=== PATIENT | female | born 1965 | race Caucasian/White ===

== ENCOUNTER 2024-06-25 10:12 | Emergency (ER) | payer BC, SELFPAY ==
--- NOTE | 2024-06-25 10:16 | XR_ITS ---
Examination: CTA chest with intravenous contrast 2-D reconstructions 3-D reconstructions, vascular Date and time of exam: June 25, 2024 1150 hours INDICATIONS: Hypertension chest pain shortness of breath tachycardia today, clinical diagnosis pulmonary embolus CTDI: vol (mGy) 19.8 DLP: (mGycm) 427 Technique: Multiple axial sections of the thorax have been obtained. 3 mm slice thickness, from below the hemidiaphragms to above the apices of the lungs. Mediastinal and lung density settings have been obtained. 2-D sagittal and coronal reconstructions. 3-D angiographic renderings, 3-D volume renderings, 3D post processing, vascular maximum intensity projections obtained. Contrast administered is 100 cc Isovue-370. Low dose protocols were performed. One or more of the following dose reduction techniques were used; automated exposure control, adjustment of the mA and/or KV according to patient size, use of iterative reconstruction technique. Findings: No thoracic aortic aneurysm dilatation or dissection Pulmonary artery segments are not enlarged No pulmonary artery emboli No paratracheal tracheobronchial or bronchopulmonary adenopathy No pneumonia or pulmonary edema or pleural disease Small pericardial effusion, anterior to the ventricles measuring 6 mm Retrocardiac gastric hernia No focal liver or splenic lesion Absent gallbladder No pancreatic or adrenal mass Kidneys partially visualized no hydronephrosis IMPRESSION: Negative for pulmonary artery emboli No pneumonia, pulmonary edema or pleural disease
--- NOTE | 2024-06-25 10:16 | EKG_ITS ---
[facility] Test Date: 2024-06-25 Pat Name: BEATA BUCKNER Department: Room: - Gender: Female Rate Inserter: : 1965 Requested By: Seamus Lara Order Number: [id number] Reading MD: Seamus Lara Measurements Intervals [place] Rate: 91 P: 1 TN: 141 QRS: 1 QRSD: 93 T: 0 QT: 364 QTc: 448 Interpretive Statements SINUS RHYTHM LOW QRS VOLTAGE IN PRECORDIAL LEADS [QRS DEFLECTION < 1.0 mV IN CHEST LEADS] Compared to ECG 05/29/2024 14:12:05 Low QRS voltage now present Ventricular premature complex(es) no longer present /store/S0/[id number]/ecg/[id number].pdf
--- NOTE | 2024-06-25 10:19 | ECHO_ITS ---
Transthoracic Echo Report Ht (in): 65 Wt (lb): 220 Exam Location: ER Status: Preadmit Folder Inspector: Blanche Fonseca Indications: Procedure Performed: BP: 160 / 90 HR: 100 Rhythm: Tachycardia Technical Quality: Fair MEASUREMENTS (Male / Female) Normal Values 2D ECHO LV Diastolic Diameter PLAX 4.6 cm 4.2 - 5.9 / 3.9 - 5.3 cm LV Systolic Diameter PLAX 3.2 cm IVS Diastolic Thickness 0.9 cm 0.6 - 1.0 / 0.6 - 0.9 cm LVPW Diastolic Thickness 0.9 cm 0.6 - 1.0 / 0.6 - 0.9 cm LV Relative Wall Thickness 0.4 LVOT Diameter 1.9 cm LA Volume Index 21.3 cm?/m? 16 - 28 cm?/m? Ascending Aorta Diameter 3.1 cm M-MODE Aortic Root Diameter MM 2.6 cm LA Systolic Diameter MM 4.0 cm LA Ao Ratio MM 1.5 AV Cusp Separation MM 2.1 cm DOPPLER AV Peak Velocity 159.0 cm/s AV Peak Gradient 10.1 mmHg AV Mean Gradient 5.0 mmHg AV Velocity Time Integral 28.9 cm LVOT Peak Velocity 91.4 cm/s LVOT Peak Gradient 3.3 mmHg LVOT Velocity Time Integral 19.8 cm LVOT Cardiac Index 2570.8 cm?/min?m? AV Area Cont Eq vti 1.9 cm? AV Area Cont Eq pk 1.6 cm? MV Peak Velocity 109.0 cm/s MV Peak Gradient 4.8 mmHg MV Mean Velocity 70.3 cm/s MV Mean Gradient 2.0 mmHg MV Area PHT 6.9 cm? MR Peak Velocity 400.0 cm/s MR Peak Gradient 64.0 mmHg Mitral E Point Velocity 60.0 cm/s Mitral A Point Velocity 113.0 cm/s Mitral E to A Ratio 0.5 LV E' Lateral Velocity 8.8 cm/s Mitral E to LV E' Lateral Ratio 6.8 LV E' Septal Velocity 11.3 cm/s Mitral E to LV E' Septal Ratio 5.3 TR Peak Velocity 212.7 cm/s TR Peak Gradient 18.1 mmHg FINDINGS Left Ventricle Normal left ventricular size, wall thickness, systolic function with no obvious regional wall motion abnormalities. The ejection fraction is visually estimated at 55-60%. Right Ventricle The right ventricle is normal in size and systolic function. The estimated right ventricular systoli c pressure, 30mmHg.RAP 5. Left Atrium The left atrium is normal by two-dimensional, color flow and Doppler imaging with no structural abnormalities, no thrombus formation present. Right Atrium The right atrium is normal by two-dimensional imaging, color flow and Doppler imaging with no struct ural abnormalities, no thrombus formation present. Atrial Septum The interatrial septum appears normal with no evidence of a shunt. Aorta The aorta is normal by two-dimensional, color flow and Doppler interrogation. Mitral Valve The mitral valve is normal by two-dimensional, color flow and Doppler interrogation. There is mild m itral valve regurgitation. Aortic Valve The aortic valve is trileaflet and normal by two-dimensional, color flow and Doppler interrogation. There is trace aortic valve regurgitation. Tricuspid Valve The tricuspid valve is normal by two-dimensional, color flow and Doppler interrogation. There is mil d tricuspid valve regurgitation. Pulmonic Valve There is no significant pulmonic valve regurgitation. Vessels The pulmonary artery appears normal. The inferior vena cava pulmonary and hepatic veins appear freddie l. Pericardium The pericardium is normal by two-dimensional imaging. There is no significant pericardial effusion. CONCLUSIONS Indication: Persistent tachycardia Normal LV size and function. Grade I diastolic dysfunction. Estimated EF 55-60% Normal RV size and function Mild MR, TR. Trace AI. Brando Arreguin (Electronically Signed) Final Date: 25 June 2024 15:51
--- NOTE | 2024-06-25 10:24 | CHAP ---
Patient expressed gratitude for visit and prayer.
--- NOTE | 2024-06-25 10:28 | PC.NURSE ---
Pt coming in from the ED lobby with c/o of tachycardia and hypertension; pt coming from clinic and has hx of breast cancer. Pt currently on chemotherapy but no radiation. Pt connected to monitors at this time.
[2024-06-25 10:29] VITALS: BP 160/90; PULSE 97; RESP 16; TEMP 36.9; O2SAT 98; BMI 17.4
--- NOTE | 2024-06-25 10:51 | PD.EDADULT ---
ED General RME/HPI General Chief complaint: General Adult/Misc Complain Stated complaint: sent by clinic for htn/tachycardia Time Seen by Provider: 06/25/24 10:15 Arrival date/time: 06/25/24 10:12 RME / HPI RME / HPI narrative: 58 year old female with history of invasive ductal carcinoma of the left breast, currently on AC chemotherapy, diabetes, GERD presents to the ED sent by oncologist Dr. Macias for further evaluation of tachycardia today. Patient evidently was at the cancer treatment center today and noted to be tachycardic. Patient states since starting the AC chemotherpay she has heart flutters 1 week post treatment and has had two echo's performed; November and April of this year. States she followed up with etl bi developer Dr. Gamboa 06/19/2024 and told there were anomalies in the echo and is pending a stress test to be scheduled. Denies fevers, chills, chest pain, cough, shortness of breath, abdominal pain, n/v/d, or urinary symptoms. Related Data Home Medications ?Medication ?Instructions ?Recorded ?Confirmed No Known Home Medications 05/17/23 05/18/23 Allergies Allergy/AdvReac Type Severity Reaction Status Date / Time latex Allergy Verified 06/25/24 10:13 WALNUTS Allergy Unknown Uncoded 06/25/24 10:13 Review of Systems Review of Systems Narrative Review of Systems: Gen: No fever, no chills, no weight loss EYES: No discharge, no visual changes, no pain HEENT: No ear pain, no congestion, no sore throat PULM: no shortness of breath, no cough, no congestion CV: No chest pain, no dyspnea on exertion, + palpitations, no chest tightness GI: No nausea, no vomiting, no diarrhea, no pain, no constipation : No frequency, no urgency,? no dysuria Musc/skel: No joint pain, no back pain Skin: No rash, no ecchymosis, no lesions Psyc: No hallucinations, no depression Heme/Lymph: No easy bleeding or bruising tendencies Neuro: No weakness, no headache Past Medical History Past Medical History NEUROLOGIC: Positive Neurological Disorders and Migraine GASTROINTESTINAL: Positive Gastrointestinal Disorders, Gall Bladder Disease and Obesity REPRODUCTIVE: Positive Breast Cancer and Previous Pregnancies MUSCULOSKELETAL: Positive Musculoskeletal Disorders and Arthritis OTHER HISTORY: Positive Chicken Pox and Breast Cancer Family History FAMILY HISTORY: Positive Family Cardiac Disorders (HTN for mom's side, HTN & DM from dad's side) Surgical History SURGICAL: Positive Abdominal Surgery (lap band 2006), Arthroscopy (right knee) and Section (x1) Social History SMOKING STATUS: Never smoker ED Exam Narrative Physical exam: GENERAL APPEARANCE: AxOx4, no obvious distress, nontoxic appearing HEENT: NC, AT. MMM. EOMI, clear conjunctiva, oropharynx clear. NECK: Supple without lymphadenopathy. No stiffness or restricted ROM. HEART: On telemetry during rest, patients heart rate is 90's and while talking is 100's-110's, normal S1/S1, no m/r/g LUNGS: CTAB, moving air well. No crackles or wheezes are heard. ABDOMEN: Soft, nontender, nondistended with good bowel sounds heard. BACK: No midline C/T/L spine pain or deformity, No CVAT, no obvious deformity. EXTREMITIES: Without cyanosis, clubbing or edema. MUSCULOSKELETAL: FROM of all major joints, no chest tenderness NEUROLOGICAL: Grossly nonfocal. Alert and oriented, moving all 4 extremities. CN not formally tested but appear grossly intact. Skin: Warm and dry without any rash. Course Quality Measures none Orders Category Date Time Status CT Screening NOW Care 06/25/24 10:16 Active EKG (ED ONLY) *Do not use* NOW Care 06/25/24 10:16 Completed CA echo doppler complete Stat Exams 06/25/24 10:[address] angio chest Stat Exams 06/25/24 10:16 Completed EKG (ED Only) Stat Exams 06/25/24 10:16 Draft Magnesium Stat Lab 06/25/24 10:48 Completed Vital Signs Vital signs: Vital Signs Temperature 98.4 F 06/25/24 10:29 Pulse Rate 97 06/25/24 10:29 Respiratory Rate 16 06/25/24 10:29 Blood Pressure 160/90 H 06/25/24 10:29 Pulse Oximetry (%) 98 06/25/24 10:29 Oxygen Delivery Method Room Air 06/25/24 10:29 Pulse ox is 98% on room air which is adequate. Procedures -ED EKG Interpretation #1: Date of EK06/25/24 Time of EK:11 Rate: 91 Interpretation: Interpreted by me Additional EKG comment: sinus rhythm, rate 91, low voltage, no acute ST-T wave changes MDM Patient data External records reviewed:: [facility] previous records (I reviewed Dr. Macias's oncology note from 06/24/2024) Clinical information provided by:: patient Social determinants that could affect healthcare access:: none Patient has the following chronic illnesses:: invasive ductal carcinoma of the left breast, currently on AC chemotherapy, diabetes, GERD How is presenting disease/condition affected by chronic disease/condition?: exacerbated by Evaluation data The following diagnostics were reviewed and interpreted by me:: lab results, radiology exam(s) and EKG tracing(s) Lab and/or radiology exams considered but not ordered:: None Interpretation Summary: Ordering Physician: Seamus Lara MD Date of Service: 06/25/24 Procedure(s): CT angio chest Accession Number(s): [id number] cc: Seamus Lara MD; Nikhil Felton MD; Maged Hallman MD~ Examination: CTA chest with intravenous contrast 2-D reconstructions 3-D reconstructions, vascular Date and time of exam: June 25, 2024 1150 hours INDICATIONS: Hypertension chest pain shortness of breath tachycardia today, clinical diagnosis pulmonary embolus CTDI: vol (mGy) 19.8 DLP: (mGycm) 427 Technique: Multiple axial sections of the thorax have been obtained. 3 mm slice thickness, from below the hemidiaphragms to above the apices of the lungs. Mediastinal and lung density settings have been obtained. 2-D sagittal and coronal reconstructions. 3-D angiographic renderings, 3-D volume renderings, 3D post processing, vascular maximum intensity projections obtained. Contrast administered is 100 cc Isovue-370. Low dose protocols were performed. One or more of the following dose reduction techniques were used; automated exposure control, adjustment of the mA and/or KV according to patient size, use of iterative reconstruction technique. Findings: No thoracic aortic aneurysm dilatation or dissection Pulmonary artery segments are not enlarged No pulmonary artery emboli No paratracheal tracheobronchial or bronchopulmonary adenopathy No pneumonia or pulmonary edema or pleural disease Small pericardial effusion, anterior to the ventricles measuring 6 mm Retrocardiac gastric hernia No focal liver or splenic lesion Absent gallbladder No pancreatic or adrenal mass Kidneys partially visualized no hydronephrosis IMPRESSION: Negative for pulmonary artery emboli No pneumonia, pulmonary edema or pleural disease Dictated By:Nikhil Felton MD Signed By:<Electronically signed by Nikhil Felton MD in OV>06/25/24 1320 Procedure(s): CA echo doppler complete Accession Number(s): [id number] cc: Brando Arreguin MD; Seamus Lara MD~ Transthoracic Echo Report Ht (in): 65 Wt (lb): 220 Exam Location: ER Status: Preadmit Pet Technologist: Blanche Fonseca Indications: Procedure Performed: BP: 160 / 90 HR: 100 Rhythm: Tachycardia Technical Quality: Fair MEASUREMENTS (Male / Female) Normal Values 2D ECHO LV Diastolic Diameter PLAX 4.6 cm 4.2 - 5.9 / 3.9 - 5.3 cm LV Systolic Diameter PLAX 3.2 cm IVS Diastolic Thickness 0.9 cm 0.6 - 1.0 / 0.6 - 0.9 cm LVPW Diastolic Thickness 0.9 cm 0.6 - 1.0 / 0.6 - 0.9 cm LV Relative Wall Thickness 0.4 LVOT Diameter 1.9 cm LA Volume Index 21.3 cm?/m? 16 - 28 cm?/m? Ascending Aorta Diameter 3.1 cm M-MODE Aortic Root Diameter MM 2.6 cm LA Systolic Diameter MM 4.0 cm LA Ao Ratio MM 1.5 AV Cusp Separation MM 2.1 cm DOPPLER AV Peak Velocity 159.0 cm/s AV Peak Gradient 10.1 mmHg AV Mean Gradient 5.0 mmHg AV Velocity Time Integral 28.9 cm LVOT Peak Velocity 91.4 cm/s LVOT Peak Gradient 3.3 mmHg LVOT Velocity Time Integral 19.8 cm LVOT Cardiac Index 2570.8 cm?/min?m? AV Area Cont Eq vti 1.9 cm? AV Area Cont Eq pk 1.6 cm? MV Peak Velocity 109.0 cm/s MV Peak Gradient 4.8 mmHg MV Mean Velocity 70.3 cm/s MV Mean Gradient 2.0 mmHg MV Area PHT 6.9 cm? MR Peak Velocity 400.0 cm/s MR Peak Gradient 64.0 mmHg Mitral E Point Velocity 60.0 cm/s Mitral A Point Velocity 113.0 cm/s Mitral E to A Ratio 0.5 LV E' Lateral Velocity 8.8 cm/s Mitral E to LV E' Lateral Ratio 6.8 LV E' Septal Velocity 11.3 cm/s Mitral E to LV E' Septal Ratio 5.3 TR Peak Velocity 212.7 cm/s TR Peak Gradient 18.1 mmHg FINDINGS Left Ventricle Normal left ventricular size, wall thickness, systolic function with no obvious regional wall motion abnormalities. The ejection fraction is visually estimated at 55-60%. Right Ventricle The right ventricle is normal in size and systolic function. The estimated right ventricular systolic pressure, 30mmHg.RAP 5. Left Atrium The left atrium is normal by two-dimensional, color flow and Doppler imaging with no structural abnormalities, no thrombus formation present. Right Atrium The right atrium is normal by two-dimensional imaging, color flow and Doppler imaging with no structural abnormalities, no thrombus formation present. Atrial Septum The interatrial septum appears normal with no evidence of a shunt. Aorta The aorta is normal by two-dimensional, color flow and Doppler interrogation. Mitral Valve The mitral valve is normal by two-dimensional, color flow and Doppler interrogation. There is mild mitral valve regurgitation. Aortic Valve The aortic valve is trileaflet and normal by two-dimensional, color flow and Doppler interrogation. There is trace aortic valve regurgitation. Tricuspid Valve The tricuspid valve is normal by two-dimensional, color flow and Doppler interrogation. There is mild tricuspid valve regurgitation. Pulmonic Valve There is no significant pulmonic valve regurgitation. Vessels The pulmonary artery appears normal. The inferior vena cava pulmonary and hepatic veins appear normal. Pericardium The pericardium is normal by two-dimensional imaging. There is no significant pericardial effusion. CONCLUSIONS Indication: Persistent tachycardia Normal LV size and function. Grade I diastolic dysfunction. Estimated EF 55-60% Normal RV size and function Mild MR, TR. Trace AI. Brando Anumandla (Electronically Signed) Final Date: 25 June 2024 15:51 Dictated By: Brando Arreguin MD Medications Medications considered but not ordered:: None Medication administrations:: see above if any Consultations Consultation(s) initiated? (list below): Yes Consultation #1 (Physician, Specialty, Details): I spoke with Dr. Macias and discussed case. Diagnosis Differential Diagnosis ED Complaint MDM: Hypomagnesemia, hypokalemia, Most likely diagnosis given after review of the tests above:: Palpitations Admission Indicated Admission indicated?: not indicated Explain why admission is indicated or not indicated:: Patient has no emergent abnormalities on his studies and can be managed on an outpatient basis. Admission Request Was there a request for admission?: No Disposition Plan Disposition Plan: Discharge Discharge Attestation Discharge Attestation: The patient and all family members were given an opportunity to ask questions and understood the discharge instructions. Discharge instructions specifically effects, indications for sooner follow up or return to the emergency department, and the expected course of current diagnosis. Patient condition: Stable Medical Decision Making Differential Diagnosis Differential Diagnosis: Hypomagnesemia, hypokalemia, Lab Data 06/25/24 10:48 06/25/24 10:48 Labs: Lab Results 06/25/24 Range/Units 10:48 WBC Cancelled RBC Cancelled Hgb Cancelled Hct Cancelled MCV Cancelled MCH Cancelled MCHC Cancelled RDW Std Deviation Cancelled Plt Count Cancelled Neut % (Auto) Cancelled Lymph % (Auto) Cancelled Christian % (Auto) Cancelled Eos % (Auto) Cancelled Baso % (Auto) Cancelled Neut # (Auto) Cancelled Lymph # (Auto) Cancelled Christian # (Auto) Cancelled Eos # (Auto) Cancelled Baso # (Auto) Cancelled Immature Gran # (Auto) Cancelled Absolute Nucleated RBC Cancelled Immature Gran % Cancelled Nucleated RBC % Cancelled Sodium Cancelled Potassium Cancelled Chloride Cancelled Carbon Dioxide Cancelled Anion Gap Cancelled BUN Cancelled Creatinine Cancelled Estim Creat Clear Calc Cancelled eGFR Cancelled BUN/Creatinine Ratio Cancelled Glucose Cancelled Calculated Osmolality Cancelled Calcium Cancelled Corrected Calcium Cancelled Magnesium 1.7 (1.6-2.6) mg/dL Total Bilirubin Cancelled AST Cancelled ALT Cancelled Alkaline Phosphatase Cancelled Total Protein Cancelled Albumin Cancelled Globulin Cancelled Albumin/Globulin Ratio Cancelled Discharge Plan Plan Patient Disposition: HOME (Self Care) Prescriptions/Referrals Prescriptions/Med Rec: No Action No Known Home Medications Referrals: Maged Hallman MD [Primary Care Provider] - In 1 week Problem List Clinical Impression: Palpitation Patient/Caregiver Discharge Instructions Education Materials: ED Palpitations Additional Instructions: Follow-up with Dr. Macias tomorrow for next steps. You can return to the emergency department sooner if symptoms worsen or for any new or concerning issues. Print Language: Persian Stand Alone Forms: [facility] Award Info., Patient Portal Info Letter
[2024-06-25 11:18] LABS: Magnesium 1.7 mg/dL (1.6-2.6)
[2024-06-25 13:10] VITALS: BP 137/97; PULSE 101; RESP 18; O2SAT 100
[2024-06-25 14:23] VITALS: BP 130/102; PULSE 102; RESP 18; TEMP 36.9; O2SAT 99
[2024-06-25 16:22] VITALS: BP 141/109; PULSE 103; RESP 20; TEMP 37.1; O2SAT 99
== END 2024-06-25 16:30 | disposition home or self-care (01) ==
PROVIDERS: Emergency Provider Emergency Medicine; PCP Internal Medicine
DX: I08.3 Combined rheumatic disorders of mitral, aortic and tricuspid valves (principal); I10 Essential (primary) hypertension
CPT/HCPCS: 36415; 71275; 80053; 83735; 85025; 93005; 93306; 99285; A4649; Q9967

== ENCOUNTER 2024-06-27 07:53 | Outpatient (RCR) | payer BC, SELFPAY ==
[2024-06-04 08:53] LABS: Basophils # (Auto) 0.1 Thou/mm3 (0.0-0.2); Basophils % (Auto) 2 % (0-2.5); Eosinophils % (Auto) 1 % (0-10); Hematocrit 33.3 % (36.0-46.0); Hemoglobin 11.6 g/dL (12.0-16.0); Immature Granulocytes % (Auto) 10 % (0-0); Immature Granulocytes Auto 0.54 Thou/mm3 (0.00-0.00); Lymphocytes # (Auto) 1.1 Thou/mm3 (1.0-4.8); Lymphocytes % (Auto) 19 % (10-50); Mean Corpuscular HGB Conc 34.8 g/dl (31.0-37.0); Mean Corpuscular Volume 101 fL (80-100); Monocytes # (Auto) 1.2 Thou/mm3 (0.0-0.8); Monocytes % (Auto) 22 % (0-12); Neutrophils # (Auto) 2.7 Thou/mm3 (1.8-7.7); Neutrophils % (Auto) 48 % (37-80); Nucleated Red Blood Cell % 0 /100 WBC (0); Platelet Count 214 Thou/mm3 (140-440); RDW Standard Deviation 45.4 fL (36.4-46.3); Red Blood Count 3.31 Miln/mm3 (4.00-5.20); White Blood Count 5.7 Thou/mm3 (3.6-11.0)
[2024-06-04 09:15] LABS: Alanine Aminotransferase 23 U/L (10-49); Albumin, Serum 4.6 gm/dL (3.5-5.0); Albumin/Globulin Ratio 1.9 (1.2-2.2); Alkaline Phosphatase 103 U/L (46-116); Anion Gap 8 (7-16); Aspartate Amino Transferase 25 U/L (0-34); BUN/Creatinine Ratio 17 Ratio (12-20); Bilirubin,Total 0.4 mg/dL (0.3-1.2); Blood Urea Nitrogen 12 mg/dL (9-23); Calcium 9.3 mg/dL (8.3-10.6); Calcium (Corrected) 9.3 mg/dL (8.5-10.1); Carbon Dioxide 24.2 mMol/L (20.0-31.0); Chloride 105 mMol/L (98-107); Creatinine (Component) 0.7 mg/dL (0.6-1.3); Globulin 2.4 gm/dL (2.3-3.5); Glucose 151 mg/dL (74-106); Magnesium 1.7 mg/dL (1.6-2.6); Osmolality,Calculated 276 (275-295); Sodium 137 mMol/L (136-145); eGFR > 60 See Note
--- NOTE | 2024-06-24 22:34 | CTCFLWUP_ITS ---
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 S/p ultrasound-guided left breast biopsy (11/14/2023) PET/CT scan (12/29/2023) negative for metastatic disease. Currently on neoadjuvant chemotherapy with pembrolizumab, paclitaxel and carboplatin followed by 4 cy cles of AC chemotherapy. Neoadjuvant chemotherapy started on 01/30/2024. REASON FOR TODAY?S VISIT: This is office follow-up visit. Ms. Buckner is here at [facility]. Currently she is undergoing neoadjuvant chemotherapy with pembrolizumab Taxol and carboplatinum. She is on neoadjuvant chemotherapy. She is doing well and have no complaints. HISTORY OF PRESENT ILLNESS: Beata Buckner is a 58-year-old ENG speaking female with history of type 2 diabetes, gastroesophageal reflux disease has the following oncology history. 10/07/2015: Bilateral screening mammograms? 09/12/2023: Bilateral screening mammograms 10/11/2023: Left breast ultrasound? 11/14/2023: Ultrasound-guided biopsy of the left breast mass 12/15/2023: [facility] hereditary cancer test?BRCA 1and2 negative 12/22/2023: Echocardiogram showed an LVEF of 60% 12/29/2023: PET/CT scan? 01/30/2024: Ms. Buckner is started on neoadjuvant chemotherapy with pembrolizumab, Taxol and carboplatin. PAST MEDICAL HISTORY: Ductal invasive carcinoma left breast 11/14/23 Diabetes GERD PAST SURGICAL HISTORY: Right knee surgery - 2022 Cholecystectomy - 2009 Lap band for weight loss - 2005 - 1991 MEDICATIONS: 1. famotidine - 20 mg 1 tab Daily 2. Lomotil - 2.5-0.025 mg 1 tab Every 6 Months 3. multivitamin - 1 tab Daily 4. Ozempic - 0.25 mg or 0.5 mg (2 mg/3 mL) Weekly?Palabra Meds? Medications Last Reconciled by Kristin Bhatti MA on 04/17/2024 ALLERGIES: walnuts; latex; latex REVIEW OF SYSTEMS:?Clone ROS? Neurological: No headache, seizures or blurring of vision. Gastrointestinal: No nausea, vomiting, diarrhea or constipation. Cardiovascular: No palpitations or angina pains. Respiratory: No cough, chest pain or shortness of breath. PHYSICAL EXAMINATION:?ClonePE? VITAL SIGNS: ) PAIN: 0 - No pain EYE: Conjunctivae is white MOUTH: Oral cavity is dry. Adenopathy is not palpable in the neck. CHEST: No palpable masses CARDIAC: Rhythm regular, no murmurs or gallops present. ABDOMEN: Soft. No hepatomegaly. No splenomegaly. EXTREMITIES: No pedal edema or cyanosis. LABORATORY DATA: Date Time ASSESSMENT: Stage IIa (T2 N0 M0) poorly differentiated triple negative invasive ductal carcinoma of the left [facility] S/p ultrasound-guided left breast biopsy (11/14/2023) Currently on neoadjuvant chemotherapy (keynote 522 protocol). BRCA 1and2 negative PET scan negative for metastatic disease. PLAN: Patient have echocardiogram which showed normal ejection fraction. Patient sees that now she does no t have shortness of breath. Cont chemotherapy I reviewed her EKG which showed premature occasional ventricular premature complexes Patient have uncontrolled hypertension Advised to see primary care ARIADNE Patient need to be on beta-jerod as she has constant tachycardia Her last echo looked reviewed and was normal will will get another echo and will order CTA Cbc,cmp ordered Electronically Signed by: {Object.Sanct_ID*PnP.NameFL@M}, {Object.Sanct_ID*PnP.Suffix@U} D: {Object.Sanct_Date} T: {Object.Sanct_Time} CC: PCP: Maged Hallman Referring: Maged Hallman This document was completed utilizing speech recognition software. Grammatical errors, random word in sertions, pronoun errors, and incomplete sentences are an occasional consequence of this system due t o software limitations, ambient noise, and hardware issues. Any formal questions or concerns about th e content, text or information contained within the body of this dictation should be directly address ed to the provider for clarification.
[2024-06-25 08:27] LABS: Basophils # (Auto) 0.1 Thou/mm3 (0.0-0.2); Basophils % (Auto) 2 % (0-2.5); Eosinophils % (Auto) 1 % (0-10); Hematocrit 30.8 % (36.0-46.0); Hemoglobin 10.6 g/dL (12.0-16.0); Immature Granulocytes % (Auto) 1 % (0-0); Immature Granulocytes Auto 0.02 Thou/mm3 (0.00-0.00); Lymphocytes # (Auto) 0.8 Thou/mm3 (1.0-4.8); Lymphocytes % (Auto) 22 % (10-50); Mean Corpuscular HGB Conc 34.4 g/dl (31.0-37.0); Mean Corpuscular Hemoglobin 33.4 pg (25.0-35.0); Mean Corpuscular Volume 97 fL (80-100); Monocytes # (Auto) 0.7 Thou/mm3 (0.0-0.8); Monocytes % (Auto) 20 % (0-12); Neutrophils % (Auto) 55 % (37-80); Nucleated Red Blood Cell % 0 /100 WBC (0); Platelet Count 278 Thou/mm3 (140-440); RDW Standard Deviation 47.4 fL (36.4-46.3); Red Blood Count 3.17 Miln/mm3 (4.00-5.20); White Blood Count 3.7 Thou/mm3 (3.6-11.0)
[2024-06-25 08:44] LABS: Alanine Aminotransferase 15 U/L (10-49); Albumin, Serum 4.4 gm/dL (3.5-5.0); Albumin/Globulin Ratio 1.9 (1.2-2.2); Alkaline Phosphatase 80 U/L (46-116); Anion Gap 6 (7-16); Aspartate Amino Transferase 17 U/L (0-34); BUN/Creatinine Ratio 16 Ratio (12-20); Bilirubin,Total 0.3 mg/dL (0.3-1.2); Blood Urea Nitrogen 11 mg/dL (9-23); Calcium 9.4 mg/dL (8.3-10.6); Calcium (Corrected) 9.4 mg/dL (8.5-10.1); Carbon Dioxide 23.2 mMol/L (20.0-31.0); Chloride 107 mMol/L (98-107); Creatinine (Component) 0.7 mg/dL (0.6-1.3); Globulin 2.3 gm/dL (2.3-3.5); Glucose 134 mg/dL (74-106); Osmolality,Calculated 273 (275-295); Potassium 4.2 mMol/L (3.4-5.1); Sodium 136 mMol/L (136-145); Total Protein 6.7 gm/dL (5.7-8.2); eGFR > 60 See Note
== END 2024-06-30 23:59 | disposition home or self-care (01) ==
LOC: SCTC 07:53
PROVIDERS: PCP Internal Medicine; Referring Provider Internal Medicine; Visit Provider Internal Medicine Hematology & Oncology
DX: Z51.11 Encounter for antineoplastic chemotherapy (principal); C50.812 Malignant neoplasm of overlapping sites of left female breast; Z17.421 Hormone receptor negative with human epidermal growth factor receptor 2 negative status
CPT/HCPCS: 36591; 80053; 83735; 84443; 85025; 96367; 96372; 96411; 96413; 96417; 99212; A4216; J1100; J1453; J1642; J2405; J3490; J7040; J7050; J9000; J9075; J9271; Q5101; G0463

== ENCOUNTER 2024-07-20 09:18 | Outpatient (RCR) | payer BC, SELFPAY ==
[2024-07-02 11:45] LABS: Basophils % (Auto) 1 % (0-2.5); Eosinophils % (Auto) 2 % (0-10); Hematocrit 30.9 % (36.0-46.0); Hemoglobin 11.1 g/dL (12.0-16.0); Immature Granulocytes % (Auto) 15 % (0-0); Immature Granulocytes Auto 0.28 Thou/mm3 (0.00-0.00); Lymphocytes # (Auto) 0.5 Thou/mm3 (1.0-4.8); Lymphocytes % (Auto) 26 % (10-50); Mean Corpuscular HGB Conc 35.9 g/dl (31.0-37.0); Mean Corpuscular Hemoglobin 33.9 pg (25.0-35.0); Mean Corpuscular Volume 95 fL (80-100); Monocytes # (Auto) 0.1 Thou/mm3 (0.0-0.8); Monocytes % (Auto) 6 % (0-12); Neutrophils % (Auto) 52 % (37-80); Nucleated Red Blood Cell % 0 /100 WBC (0); Platelet Count 129 Thou/mm3 (140-440); RDW Standard Deviation 45.4 fL (36.4-46.3); Red Blood Count 3.27 Miln/mm3 (4.00-5.20)
[2024-07-02 11:52] LABS: White Blood Count 1.9 Thou/mm3 (3.6-11.0)
[2024-07-02 12:00] LABS: Alanine Aminotransferase 13 U/L (10-49); Albumin, Serum 4.7 gm/dL (3.5-5.0); Alkaline Phosphatase 80 U/L (46-116); Anion Gap 12 (7-16); Aspartate Amino Transferase 16 U/L (0-34); BUN/Creatinine Ratio 17 Ratio (12-20); Bilirubin,Total 0.8 mg/dL (0.3-1.2); Blood Urea Nitrogen 12 mg/dL (9-23); Calcium 9.3 mg/dL (8.3-10.6); Calcium (Corrected) 9.3 mg/dL (8.5-10.1); Carbon Dioxide 23.1 mMol/L (20.0-31.0); Chloride 101 mMol/L (98-107); Creatinine (Component) 0.7 mg/dL (0.6-1.3); Globulin 2.3 gm/dL (2.3-3.5); Glucose 159 mg/dL (74-106); Osmolality,Calculated 274 (275-295); Potassium 4.1 mMol/L (3.4-5.1); Sodium 136 mMol/L (136-145); eGFR > 60 See Note
[2024-07-16 09:40] LABS: Basophils # (Auto) 0.1 Thou/mm3 (0.0-0.2); Basophils % (Auto) 2 % (0-2.5); Eosinophils % (Auto) 1 % (0-10); Hematocrit 31.2 % (36.0-46.0); Hemoglobin 10.8 g/dL (12.0-16.0); Immature Granulocytes % (Auto) 0 % (0-0); Immature Granulocytes Auto 0.01 Thou/mm3 (0.00-0.00); Lymphocytes # (Auto) 0.8 Thou/mm3 (1.0-4.8); Lymphocytes % (Auto) 22 % (10-50); Mean Corpuscular HGB Conc 34.6 g/dl (31.0-37.0); Mean Corpuscular Hemoglobin 33.4 pg (25.0-35.0); Mean Corpuscular Volume 97 fL (80-100); Monocytes # (Auto) 0.8 Thou/mm3 (0.0-0.8); Monocytes % (Auto) 23 % (0-12); Neutrophils # (Auto) 1.8 Thou/mm3 (1.8-7.7); Neutrophils % (Auto) 52 % (37-80); Nucleated Red Blood Cell % 0 /100 WBC (0); Platelet Count 281 Thou/mm3 (140-440); RDW Standard Deviation 50.1 fL (36.4-46.3); Red Blood Count 3.23 Miln/mm3 (4.00-5.20); White Blood Count 3.5 Thou/mm3 (3.6-11.0)
[2024-07-16 10:27] LABS: Alanine Aminotransferase 15 U/L (10-49); Albumin, Serum 4.8 gm/dL (3.5-5.0); Albumin/Globulin Ratio 1.9 (1.2-2.2); Alkaline Phosphatase 87 U/L (46-116); Anion Gap 12 (7-16); Aspartate Amino Transferase 18 U/L (0-34); BUN/Creatinine Ratio 15 Ratio (12-20); Bilirubin,Total 0.4 mg/dL (0.3-1.2); Blood Urea Nitrogen 12 mg/dL (9-23); Calcium 9.6 mg/dL (8.3-10.6); Calcium (Corrected) 9.6 mg/dL (8.5-10.1); Carbon Dioxide 22.3 mMol/L (20.0-31.0); Chloride 103 mMol/L (98-107); Creatinine (Component) 0.8 mg/dL (0.6-1.3); Free T4 (Free Thyroxine) 1.07 ng/dL (0.89-1.76); Globulin 2.5 gm/dL (2.3-3.5); Glucose 164 mg/dL (74-106); Osmolality,Calculated 277 (275-295); Potassium 3.9 mMol/L (3.4-5.1); Sodium 137 mMol/L (136-145); Thyroid Stimulating Hormone 3.55 uIU/mL (0.55-4.78); Total Protein 7.3 gm/dL (5.7-8.2); eGFR > 60 See Note
== END 2024-07-31 23:59 | disposition home or self-care (01) ==
LOC: SCTC 09:18
PROVIDERS: PCP Internal Medicine; Referring Provider Internal Medicine; Visit Provider Internal Medicine Hematology & Oncology
DX: Z51.11 Encounter for antineoplastic chemotherapy (principal); C50.812 Malignant neoplasm of overlapping sites of left female breast; Z17.421 Hormone receptor negative with human epidermal growth factor receptor 2 negative status
CPT/HCPCS: 36591; 80053; 84439; 84443; 85025; 96367; 96372; 96411; 96413; 96417; A4216; J1100; J1453; J1642; J2405; J3490; J7050; J9000; J9075; J9271; Q5101

== ENCOUNTER 2024-08-06 08:41 | Outpatient (RCR) | payer BC, SELFPAY ==
[2024-08-06 09:28] LABS: Basophils # (Auto) 0.1 Thou/mm3 (0.0-0.2); Basophils % (Auto) 1 % (0-2.5); Eosinophils % (Auto) 1 % (0-10); Hematocrit 28.7 % (36.0-46.0); Hemoglobin 9.9 g/dL (12.0-16.0); Immature Granulocytes % (Auto) 1 % (0-0); Immature Granulocytes Auto 0.03 Thou/mm3 (0.00-0.00); Lymphocytes # (Auto) 0.7 Thou/mm3 (1.0-4.8); Lymphocytes % (Auto) 17 % (10-50); Mean Corpuscular HGB Conc 34.5 g/dl (31.0-37.0); Mean Corpuscular Hemoglobin 33.2 pg (25.0-35.0); Mean Corpuscular Volume 96 fL (80-100); Monocytes # (Auto) 0.9 Thou/mm3 (0.0-0.8); Monocytes % (Auto) 21 % (0-12); Neutrophils # (Auto) 2.4 Thou/mm3 (1.8-7.7); Neutrophils % (Auto) 59 % (37-80); Nucleated Red Blood Cell % 0 /100 WBC (0); Platelet Count 265 Thou/mm3 (140-440); RDW Standard Deviation 52.9 fL (36.4-46.3); Red Blood Count 2.98 Miln/mm3 (4.00-5.20)
[2024-08-06 09:56] LABS: Alanine Aminotransferase 16 U/L (10-49); Albumin, Serum 4.5 gm/dL (3.5-5.0); Albumin/Globulin Ratio 2.5 (1.2-2.2); Alkaline Phosphatase 81 U/L (46-116); Anion Gap 11 (7-16); Aspartate Amino Transferase 22 U/L (0-34); BUN/Creatinine Ratio 19 Ratio (12-20); Bilirubin,Total 0.4 mg/dL (0.3-1.2); Blood Urea Nitrogen 13 mg/dL (9-23); Calcium 9.5 mg/dL (8.3-10.6); Calcium (Corrected) 9.5 mg/dL (8.5-10.1); Carbon Dioxide 24.3 mMol/L (20.0-31.0); Chloride 103 mMol/L (98-107); Creatinine (Component) 0.7 mg/dL (0.6-1.3); Globulin 1.8 gm/dL (2.3-3.5); Glucose 176 mg/dL (74-106); Osmolality,Calculated 279 (275-295); Potassium 4.1 mMol/L (3.4-5.1); Sodium 138 mMol/L (136-145); Total Protein 6.3 gm/dL (5.7-8.2); eGFR > 60 See Note
== END 2024-08-31 23:59 | disposition home or self-care (01) ==
LOC: SCTC 08:41
PROVIDERS: PCP Internal Medicine; Referring Provider Internal Medicine; Visit Provider Internal Medicine Hematology & Oncology
DX: C50.812 Malignant neoplasm of overlapping sites of left female breast (principal); I10 Essential (primary) hypertension
CPT/HCPCS: 36591; 80053; 85025; A4216; J1642

== ENCOUNTER 2024-09-10 13:15 | Outpatient (RCR) | payer BC, SELFPAY ==
[2024-09-07 10:54] LABS: Basophils % (Auto) 0 % (0-2.5); Eosinophils # (Auto) 0.5 Thou/mm3 (0.0-0.5); Eosinophils % (Auto) 10 % (0-10); Hematocrit 32.6 % (36.0-46.0); Immature Granulocytes % (Auto) 0 % (0-0); Lymphocytes # (Auto) 1.4 Thou/mm3 (1.0-4.8); Lymphocytes % (Auto) 29 % (10-50); Mean Corpuscular HGB Conc 33.7 g/dl (31.0-37.0); Mean Corpuscular Hemoglobin 32.5 pg (25.0-35.0); Mean Corpuscular Volume 96 fL (80-100); Monocytes # (Auto) 0.6 Thou/mm3 (0.0-0.8); Monocytes % (Auto) 12 % (0-12); Neutrophils # (Auto) 2.3 Thou/mm3 (1.8-7.7); Neutrophils % (Auto) 49 % (37-80); Nucleated Red Blood Cell % 0 /100 WBC (0); Platelet Count 193 Thou/mm3 (140-440); RDW Standard Deviation 45.2 fL (36.4-46.3); Red Blood Count 3.38 Miln/mm3 (4.00-5.20); White Blood Count 4.8 Thou/mm3 (3.6-11.0)
[2024-09-07 11:20] LABS: Alanine Aminotransferase 27 U/L (10-49); Albumin, Serum 4.3 gm/dL (3.5-5.0); Alkaline Phosphatase 75 U/L (46-116); Anion Gap 10 (7-16); Aspartate Amino Transferase 22 U/L (0-34); BUN/Creatinine Ratio 18 Ratio (12-20); Bilirubin,Total 0.5 mg/dL (0.3-1.2); Blood Urea Nitrogen 11 mg/dL (9-23); Carbon Dioxide 24.3 mMol/L (20.0-31.0); Chloride 105 mMol/L (98-107); Creatinine (Component) 0.6 mg/dL (0.6-1.3); Globulin 2.2 gm/dL (2.3-3.5); Glucose 131 mg/dL (74-106); Osmolality,Calculated 278 (275-295); Potassium 3.9 mMol/L (3.4-5.1); Sodium 139 mMol/L (136-145); Thyroid Stimulating Hormone 2.15 uIU/mL (0.55-4.78); Total Protein 6.5 gm/dL (5.7-8.2); eGFR > 60 See Note
== END 2024-09-28 23:59 | disposition home or self-care (01) ==
LOC: SCTC 13:15
PROVIDERS: PCP Internal Medicine; Referring Provider Internal Medicine; Visit Provider Internal Medicine Hematology & Oncology
DX: Z51.11 Encounter for antineoplastic chemotherapy (principal); C50.412 Malignant neoplasm of upper-outer quadrant of left female breast; Z17.421 Hormone receptor negative with human epidermal growth factor receptor 2 negative status
CPT/HCPCS: 36591; 80053; 84443; 85025; 96413; A4216; J1642; J7050; J9271

== ENCOUNTER 2024-10-19 08:07 | Outpatient (RCR) | payer BC, SELFPAY ==
[2024-10-01 11:16] LABS: Basophils % (Auto) 1 % (0-2.5); Eosinophils # (Auto) 0.2 Thou/mm3 (0.0-0.5); Eosinophils % (Auto) 4 % (0-10); Hematocrit 35.3 % (36.0-46.0); Hemoglobin 12.1 g/dL (12.0-16.0); Immature Granulocytes % (Auto) 0 % (0-0); Immature Granulocytes Auto 0.01 Thou/mm3 (0.00-0.00); Lymphocytes # (Auto) 1.4 Thou/mm3 (1.0-4.8); Lymphocytes % (Auto) 29 % (10-50); Mean Corpuscular HGB Conc 34.3 g/dl (31.0-37.0); Mean Corpuscular Volume 93 fL (80-100); Monocytes # (Auto) 0.6 Thou/mm3 (0.0-0.8); Monocytes % (Auto) 13 % (0-12); Neutrophils # (Auto) 2.6 Thou/mm3 (1.8-7.7); Neutrophils % (Auto) 54 % (37-80); Nucleated Red Blood Cell % 0 /100 WBC (0); Platelet Count 170 Thou/mm3 (140-440); RDW Standard Deviation 40.9 fL (36.4-46.3); Red Blood Count 3.78 Miln/mm3 (4.00-5.20); White Blood Count 4.8 Thou/mm3 (3.6-11.0)
[2024-10-01 11:37] LABS: Alanine Aminotransferase 19 U/L (10-49); Albumin, Serum 4.6 gm/dL (3.5-5.0); Alkaline Phosphatase 83 U/L (46-116); Anion Gap 9 (7-16); Aspartate Amino Transferase 22 U/L (0-34); BUN/Creatinine Ratio 18 Ratio (12-20); Bilirubin,Total 0.4 mg/dL (0.3-1.2); Blood Urea Nitrogen 11 mg/dL (9-23); Calcium 9.7 mg/dL (8.3-10.6); Calcium (Corrected) 9.7 mg/dL (8.5-10.1); Carbon Dioxide 24.4 mMol/L (20.0-31.0); Chloride 107 mMol/L (98-107); Creatinine (Component) 0.6 mg/dL (0.6-1.3); Globulin 2.3 gm/dL (2.3-3.5); Glucose 109 mg/dL (74-106); Osmolality,Calculated 279 (275-295); Potassium 4.1 mMol/L (3.4-5.1); Sodium 140 mMol/L (136-145); Thyroid Stimulating Hormone 1.77 uIU/mL (0.55-4.78); Total Protein 6.9 gm/dL (5.7-8.2); eGFR > 60 See Note
--- NOTE | 2024-10-08 00:37 | CTCFLWUP_ITS ---
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 S/p ultrasound- guided left breast biopsy (11/14/2023) PET/CT scan (12/29/2023) negative for metastatic disease. Currently on neoadjuvant chemotherapy with pembrolizumab, paclitaxel and carboplatin followed by 4 cycles of AC chemotherapy. Neoadjuvant chemotherapy started on 01/30/2024. DATE OF DIAGNOSIS: Date of diagnosis 11/14/2023 STAGE/TNM: Stage IIa poorly differentiated triple negative invasive ductal carcinoma of the left breast. S/p ultrasound- guided left breast biopsy (11/14/2023) PET/CT scan (12/29/2023) negative for metastatic disease. TREATMENT HISTORY: Care?Plan Start?Date Cycle Day Intent TNBC?Pembro?17?cy?TaxCar?4?cy?AC?4?cy?Keynote?522 01/30/2024 1 21 Curative?(primary) HISTORY OF PRESENT ILLNESS: Beata Buckner is a 58-year-old ENG speaking female with history of type 2 diabetes, gastroesophageal reflux disease has the following oncology history. 10/07/2015: Bilateral screening mammograms? 09/12/2023: Bilateral screening mammograms 10/11/2023: Left breast ultrasound? 11/14/2023: Ultrasound-guided biopsy of the left breast mass 12/15/2023: Norma hereditary cancer test?BRCA 1and2 negative 12/22/2023: Echocardiogram showed an LVEF of 60% 12/29/2023: PET/CT scan? 01/30/2024: Ms. Buckner is started on neoadjuvant chemotherapy with pembrolizumab, Taxol and carboplatin. OTHER MEDICAL HISTORY/CONDITIONS: Ductal invasive carcinoma left breast 11/14/23 Diabetes GERD Right knee surgery - 2022 Cholecystectomy - 2009 Lap band for weight loss - 2005 - 1991 ?Clone Other Med Hx? FAMILY HISTORY: Mother:?skin?-?dx?60's Cancer History:?Mat grandfather-multiple myeloma; Pat grandfather-prostate ?Clone Family Hx? 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 Tobacco?Use:?Denies ETOH Use:?1-2 gin/tonic or wine per week x 18 yrs Drug?Note:?CBD gummies for sleep - 2-3 yrs Social?History?Note:?Lives?with? ?Clone Social Hx? RUNNER OUT HISTORY: Menarche?-?Age:?11 Menopause:?2006 :?3 Live?Births:?1 Age?1st?:?25 Gynecological?Note:?2?abortions ?Clone RUNNER OUT Hx? MEDICATIONS: 1. multivitamin - 1 tab Daily 2. Ozempic - 0.25 mg or 0.5 mg (2 mg/3 mL) Weekly?Palabra Meds? Medications Last Reconciled by Caterina Michele MA on 10/03/2024 ALLERGIES: walnuts; latex; latex REVIEW OF SYSTEMS: A complete 14-point review of systems was performed and is negative except as noted in interval history. PHYSICAL EXAMINATION:?CloneBlock PE? VITAL SIGNS: Temperature?99, B/P?137/86, Oxygen?Saturation?99% Weight?227?lbs (Change?since?10/01/24:?-1.4?lbs) PAIN: 0 - No pain ECOG Performance Status: 0 - Asymptomatic and fully active EYE: Conjunctivae is white MOUTH: Oral cavity is dry. Adenopathy is not palpable in the neck. CHEST: No palpable masses CARDIAC: Rhythm regular, no murmurs or gallops present. ABDOMEN: Soft. No hepatomegaly. No splenomegaly. EXTREMITIES: No pedal edema or cyanosis. LABORATORY DATA: I have personally reviewed and interpreted each of the patient?s relevant lab tests, abnormal findings are below: Date 09/07/24 10/01/24 ??WHITE?BLOOD?COUNT?(Thou/mm3) 4.8 4.8 ??RED?BLOOD?COUNT?(Miln/mm3) 3.38?L 3.78?L ??HEMOGLOBIN?(gm/dl) 11.0?L 12.1 ??HEMATOCRIT?(%) 32.6?L 35.3?L ??PLATELET?COUNT?(Thou/mm3) 193 170 ??NEUTROPHILS?%,?AUTO?(%) 49 54 ??LYMPH?%,?AUTO?(%) 29 29 ??NEUTROPHILS,?AUTO?(Thou/mm3) 2.3 2.6 ??GLUCOSE,RANDOM?(mg/dL) 131?H 109?H ??BLOOD?UREA?NITROGEN?(mg/dL) 11 11 ??CREATININE?(mg/dL) 0.60 0.60 ??SODIUM?(mmol/L) 139 140 ??POTASSIUM?(mmol/L) 3.9 4.1 ??CHLORIDE?(mmol/L) 105 107 ??CrCl?(CandG)?(ml/min) 118.12 119.23 ??AST/SGOT?(Unit/L) 22 22 ??ALT/SGPT?(Unit/L) 27 19 ??ALKALINE?PHOSPHATASE?(Unit/L) 75 83 ??BILIRUBIN,?TOTAL?(mg/dL) 0.5 0.4 ??PROTEIN?TOTAL?(gm/dl) 6.5 6.9 ??ALBUMIN,?SERUM?(gm/dl) 4.3 4.6 ??GLOBULIN?(gm/dl) 2.2?L 2.3 ??ALBUMIN/GLOBULIN?RATIO 2.0 2.0 ??CALCIUM,?SERUM?(mg/dL) 9.0 9.7 ??CALCIUM?SERUM?(CORRECTED)?(mg/dL) 9.0 9.7 ASSESSMENT/PLAN: Stage IIa (T2 N0 M0) poorly differentiated triple negative invasive ductal carcinoma of the left breast. S/p ultrasound-guided left breast biopsy (11/14/2023) Currently on neoadjuvant chemotherapy (keynote 522 protocol). Patient is on cycle 11 of Keytruda BRCA 1and2 negative PET scan negative for metastatic disease. Patient have echocardiogram which showed normal ejection fraction. Patient sees that now she does not have shortness of breath. Cont chemotherapy I reviewed her EKG which showed premature occasional ventricular premature complexes Patient have uncontrolled hypertension Advised to see primary care ARIADNE Patient need to be on beta-jerod as she has constant tachycardia Her last echo looked reviewed and was normal CTA was negative Will do bone density TSH T4 CBC CMP TSH T4 bone density RETURN TO CLINIC: I will see her back in the clinic in 2 months. BILLING AND COMPLIANCE: I reviewed external records from providers outside my specialty as summarized above. I spent a total of 50 minutes on this patient?s care on the day of their visit excluding time spent related to any billed procedures. This time includes time spent with the patient as well as time spent documenting in the medical record, reviewing patients records and tests, obtaining history, placing orders, communicating with other healthcare professionals, counseling the patient, family or caregiver, and/or care coordination for the diagnoses above. Electronically Signed by: Mikael Macias MD T: 12:35 AM CC: PCP: Maged Hallman Referring: Maged Hallman This document was completed utilizing speech recognition software. Grammatical errors, random word insertions, pronoun errors, and incomplete sentences are an occasional consequence of this system due to software limitations, ambient noise, and hardware issues. Any formal questions or concerns about the content, text or information contained within the body of this dictation should be directly addressed to the provider for clarification.
[2024-10-19 11:32] LABS: Basophils % (Auto) 1 % (0-2.5); Eosinophils # (Auto) 0.2 Thou/mm3 (0.0-0.5); Eosinophils % (Auto) 5 % (0-10); Hematocrit 36.5 % (36.0-46.0); Hemoglobin 12.5 g/dL (12.0-16.0); Immature Granulocytes % (Auto) 0 % (0-0); Immature Granulocytes Auto 0.01 Thou/mm3 (0.00-0.00); Lymphocytes # (Auto) 1.2 Thou/mm3 (1.0-4.8); Lymphocytes % (Auto) 27 % (10-50); Mean Corpuscular HGB Conc 34.2 g/dl (31.0-37.0); Mean Corpuscular Hemoglobin 31.3 pg (25.0-35.0); Mean Corpuscular Volume 92 fL (80-100); Monocytes # (Auto) 0.5 Thou/mm3 (0.0-0.8); Monocytes % (Auto) 12 % (0-12); Neutrophils # (Auto) 2.4 Thou/mm3 (1.8-7.7); Neutrophils % (Auto) 55 % (37-80); Nucleated Red Blood Cell % 0 /100 WBC (0); Platelet Count 184 Thou/mm3 (140-440); RDW Standard Deviation 39.9 fL (36.4-46.3); Red Blood Count 3.99 Miln/mm3 (4.00-5.20); White Blood Count 4.4 Thou/mm3 (3.6-11.0)
[2024-10-19 11:52] LABS: Free T3 3.8 pg/mL (2.3-4.2)
[2024-10-19 11:59] LABS: Alanine Aminotransferase 19 U/L (10-49); Albumin, Serum 4.3 gm/dL (3.5-5.0); Albumin/Globulin Ratio 1.9 (1.2-2.2); Alkaline Phosphatase 82 U/L (46-116); Anion Gap 11 (7-16); Aspartate Amino Transferase 19 U/L (0-34); BUN/Creatinine Ratio 17 Ratio (12-20); Bilirubin,Total 0.5 mg/dL (0.3-1.2); Blood Urea Nitrogen 12 mg/dL (9-23); Calcium 9.3 mg/dL (8.3-10.6); Calcium (Corrected) 9.3 mg/dL (8.5-10.1); Carbon Dioxide 24.3 mMol/L (20.0-31.0); Chloride 103 mMol/L (98-107); Creatinine (Component) 0.7 mg/dL (0.6-1.3); Globulin 2.3 gm/dL (2.3-3.5); Glucose 123 mg/dL (74-106); Osmolality,Calculated 276 (275-295); Sodium 138 mMol/L (136-145); Thyroid Stimulating Hormone 2.69 uIU/mL (0.55-4.78); Total Protein 6.6 gm/dL (5.7-8.2); eGFR > 60 See Note
== END 2024-10-29 23:59 | disposition home or self-care (01) ==
LOC: SCTC 08:07
PROVIDERS: PCP Internal Medicine; Referring Provider Internal Medicine; Visit Provider Internal Medicine Hematology & Oncology
DX: Z51.11 Encounter for antineoplastic chemotherapy (principal); C50.812 Malignant neoplasm of overlapping sites of left female breast; Z17.421 Hormone receptor negative with human epidermal growth factor receptor 2 negative status; I10 Essential (primary) hypertension
CPT/HCPCS: 36591; 80053; 84443; 84481; 85025; 96413; 99212; A4216; J1642; J7050; J9271; G0463

== ENCOUNTER → 2024-11-05 | Outpatient (CLI) | payer BC, SELFPAY ==
--- NOTE | 2024-11-05 13:00 | XR_ITS ---
Examination: Bone densitometry Date and time of exam:October 1346 hrs. Indications: Menopause age 45 vitamin D 2 weeks left breast carcinoma diagnosis Technique: Lumbar spine and hip total bone mineralization values of an calculated. Peak reference and age match control results have been displayed. Findings: Lumbar spine total bone mineralization is1.079 gm/cm2. This is 0.3 standard deviations above peak reference. This is 1.6 standard deviations above age-matched controls. Hip total bone mineralization is 0.924 gm/cm2 This is 0.1 standard deviations below peak reference. This is 0.7 standard deviations above age-matched controls Impression: There is normal mineralization based on lumbar spine measurements. There is normal mineralization based on hip measurements
== END | disposition home or self-care (01) ==
LOC: CDIM 13:03
PROVIDERS: PCP Internal Medicine; Referring Provider Internal Medicine Hematology & Oncology; Visit Provider Internal Medicine Hematology & Oncology
DX: C50.912 Malignant neoplasm of unspecified site of left female breast (principal); C50.019 Malignant neoplasm of nipple and areola, unspecified female breast
CPT/HCPCS: 77080

== ENCOUNTER → 2024-11-06 | Outpatient (CLI) | payer BC, SELFPAY ==
--- NOTE | 2024-11-06 14:00 | ECHO_ITS ---
Transthoracic Echo Report Ht (in): 65 Wt (lb): 250 Exam Location: Echo Lab Status: Preadmit Traffic Control Signaler: AP Black^^^^ Indications: Procedure Performed: BP: 122 / 72 HR: 90 Rhythm: Sinus Technical Quality: Fair MEASUREMENTS (Male / Female) Normal Values 2D ECHO LV Diastolic Diameter PLAX 5.1 cm 4.2 - 5.9 / 3.9 - 5.3 cm LV Systolic Diameter PLAX 3.5 cm IVS Diastolic Thickness 0.8 cm 0.6 - 1.0 / 0.6 - 0.9 cm LVPW Diastolic Thickness 0.8 cm 0.6 - 1.0 / 0.6 - 0.9 cm LV Relative Wall Thickness 0.3 LVOT Diameter 1.8 cm Aortic Root Diameter 3.2 cm LA Systolic Diameter LX 4.1 cm 3.0 - 4.0 / 2.7 - 3.8 cm LV Ejection Fraction MOD BP 62.1 % >= 55 % LV Cardiac Index MOD BP 2308.5 cm?/min?m? LV Ejection Fraction MOD 4C 68.5 % LV Cardiac Index MOD 4C 3662.9 cm?/min?m? LV Ejection Fraction 4C AL 69.7 % LV Cardiac Index 4C AL 3848.9 cm?/min?m? LV Ejection Fraction MOD 2C 49.9 % LV Cardiac Index MOD 2C 1142.7 cm?/min?m? LV Ejection Fraction 2C AL 51.0 % LV Cardiac Index 2C AL 1182.6 cm?/min?m? LA Volume Index 29.2 cm?/m? 16 - 28 cm?/m? Ascending Aorta Diameter 3.1 cm DOPPLER AV Peak Velocity 166.0 cm/s AV Peak Gradient 11.0 mmHg AV Mean Gradient 6.0 mmHg AV Velocity Time Integral 33.4 cm LVOT Peak Velocity 94.2 cm/s LVOT Peak Gradient 3.8 mmHg LVOT Velocity Time Integral 26.1 cm LVOT Cardiac Index 2555.4 cm?/min?m? AV Area Cont Eq vti 2.0 cm? AV Area Cont Eq pk 1.4 cm? MV Area PHT 3.5 cm? MR Peak Velocity 554.7 cm/s MR Peak Gradient 123.0 mmHg Mitral E Point Velocity 78.6 cm/s Mitral A Point Velocity 117.0 cm/s Mitral E to A Ratio 0.7 LV E' Lateral Velocity 9.1 cm/s Mitral E to LV E' Lateral Ratio 8.6 LV E' Septal Velocity 5.5 cm/s Mitral E to LV E' Septal Ratio 14.3 TR Peak Velocity 274.8 cm/s TR Peak Gradient 30.1 mmHg PV Peak Velocity 78.9 cm/s PV Peak Gradient 2.2 mmHg RVOT Peak Velocity 47.3 cm/s FINDINGS Left Ventricle Normal left ventricular size, wall thickness, systolic function with no obvious regional wall motion abnormalities. There is grade I diastolic dysfunction of the left ventricle (impaired relaxation pattern). The left ventricular ejection fraction is normal, estimated at 55-60%. Right Ventricle The right ventricle is normal in size and systolic function. The estimated right ventricular systolic pressure, 38 mmHg. Left Atrium The left atrium is normal by two-dimensional, color flow and Doppler imaging with no structural abnormalities, no thrombus formation present. Right Atrium The right atrium is normal by two-dimensional imaging, color flow and Doppler imaging with no structural abnormalities, no thrombus formation present. Atrial Septum The interatrial septum appears normal with no evidence of a shunt. Aorta The aorta is normal by two-dimensional, color flow and Doppler interrogation. Mitral Valve Moderate mitral regurgitation. Aortic Valve Aortic valve sclerosis. Tricuspid Valve There is mild to moderate tricuspid valve regurgitation. Pulmonic Valve The pulmonic valve is not well visualized. There is no significant pulmonic valve regurgitation. Vessels The pulmonary artery appears normal. The inferior vena cava pulmonary and hepatic veins appear normal. Pericardium The pericardium is normal by two-dimensional imaging. There is no significant pericardial effusion. CONCLUSIONS Indication: Malignant neoplasm of nipple and areola, unspecified female Normal LV size and function with an EF of 60 to 65%. Normal RV size and function. Estimated RVSP normal at 30 to 35 mmHg. Trace MR and mild TR Brando Arreguin (Electronically Signed) Final Date: 06 November 2024 19:56
== END | disposition home or self-care (01) ==
LOC: SDIM 13:50
PROVIDERS: PCP Internal Medicine; Referring Provider Internal Medicine Hematology & Oncology; Visit Provider Internal Medicine Hematology & Oncology
DX: I08.1 Rheumatic disorders of both mitral and tricuspid valves (principal); C50.919 Malignant neoplasm of unspecified site of unspecified female breast
CPT/HCPCS: 93306

== ENCOUNTER 2024-11-12 11:57 | Outpatient (RCR) | payer BC, SELFPAY ==
[2024-11-09 11:13] LABS: Basophils % (Auto) 1 % (0-2.5); Eosinophils # (Auto) 0.2 Thou/mm3 (0.0-0.5); Eosinophils % (Auto) 4 % (0-10); Hematocrit 36.7 % (36.0-46.0); Hemoglobin 12.4 g/dL (12.0-16.0); Immature Granulocytes % (Auto) 0 % (0-0); Immature Granulocytes Auto 0.01 Thou/mm3 (0.00-0.00); Lymphocytes # (Auto) 1.2 Thou/mm3 (1.0-4.8); Lymphocytes % (Auto) 22 % (10-50); Mean Corpuscular HGB Conc 33.8 g/dl (31.0-37.0); Mean Corpuscular Hemoglobin 30.2 pg (25.0-35.0); Mean Corpuscular Volume 89 fL (80-100); Monocytes # (Auto) 0.6 Thou/mm3 (0.0-0.8); Monocytes % (Auto) 11 % (0-12); Neutrophils # (Auto) 3.5 Thou/mm3 (1.8-7.7); Neutrophils % (Auto) 63 % (37-80); Nucleated Red Blood Cell % 0 /100 WBC (0); Platelet Count 214 Thou/mm3 (140-440); RDW Standard Deviation 40.2 fL (36.4-46.3); Red Blood Count 4.11 Miln/mm3 (4.00-5.20); White Blood Count 5.6 Thou/mm3 (3.6-11.0)
[2024-11-09 11:37] LABS: Alanine Aminotransferase 17 U/L (10-49); Albumin, Serum 4.2 gm/dL (3.5-5.0); Albumin/Globulin Ratio 1.7 (1.2-2.2); Alkaline Phosphatase 79 U/L (46-116); Anion Gap 9 (7-16); Aspartate Amino Transferase 17 U/L (0-34); BUN/Creatinine Ratio 13 Ratio (12-20); Bilirubin,Total 0.4 mg/dL (0.3-1.2); Blood Urea Nitrogen 9 mg/dL (9-23); Calcium 9.4 mg/dL (8.3-10.6); Calcium (Corrected) 9.4 mg/dL (8.5-10.1); Carbon Dioxide 26.2 mMol/L (20.0-31.0); Chloride 105 mMol/L (98-107); Creatinine (Component) 0.7 mg/dL (0.6-1.3); Globulin 2.5 gm/dL (2.3-3.5); Glucose 124 mg/dL (74-106); Osmolality,Calculated 279 (275-295); Potassium 4.1 mMol/L (3.4-5.1); Sodium 140 mMol/L (136-145); Thyroid Stimulating Hormone 1.66 uIU/mL (0.55-4.78); Total Protein 6.7 gm/dL (5.7-8.2); eGFR > 60 See Note
== END 2024-11-28 23:59 | disposition home or self-care (01) ==
LOC: SCTC 11:57
PROVIDERS: PCP Internal Medicine; Referring Provider Internal Medicine; Visit Provider Internal Medicine Hematology & Oncology
DX: Z51.11 Encounter for antineoplastic chemotherapy (principal); C50.812 Malignant neoplasm of overlapping sites of left female breast; Z17.421 Hormone receptor negative with human epidermal growth factor receptor 2 negative status; I10 Essential (primary) hypertension
CPT/HCPCS: 36591; 80053; 84443; 85025; 96413; A4216; J1642; J7050; J9271

== ENCOUNTER → 2024-12-12 | Outpatient (CLI) | payer BC, SELFPAY ==
--- NOTE | 2024-12-12 08:45 | XR_ITS ---
Examination: Pelvic ultrasound, transabdominal, complete Technique: Transabdominal ultrasound of the pelvis performed using grayscale imaging Date and time of exam: December 12, 2024 0843 hours Intermittent pelvic pain beginning one month ago FINDINGS: Uterus 6.3 cm endometrial stripe 0.3 cm No uterine mass Right ovary 2.1 cm arterial flow Left ovary 1.9 cm arterial flow IMPRESSION: Negative examination
== END | disposition home or self-care (01) ==
LOC: CDIM 08:03
PROVIDERS: PCP Internal Medicine; Referring Provider Internal Medicine; Visit Provider Internal Medicine
DX: R10.2 Pelvic and perineal pain (principal)
CPT/HCPCS: 76856

== ENCOUNTER 2024-12-25 12:10 | Outpatient (RCR) | payer BC, SELFPAY ==
[2024-11-30 09:00] LABS: Basophils # (Auto) 0.1 Thou/mm3 (0.0-0.2); Basophils % (Auto) 1 % (0-2.5); Eosinophils # (Auto) 0.2 Thou/mm3 (0.0-0.5); Eosinophils % (Auto) 5 % (0-10); Hematocrit 37.2 % (36.0-46.0); Hemoglobin 13.1 g/dL (12.0-16.0); Immature Granulocytes % (Auto) 0 % (0-0); Immature Granulocytes Auto 0.01 Thou/mm3 (0.00-0.00); Lymphocytes # (Auto) 1.3 Thou/mm3 (1.0-4.8); Lymphocytes % (Auto) 25 % (10-50); Mean Corpuscular HGB Conc 35.2 g/dl (31.0-37.0); Mean Corpuscular Volume 88 fL (80-100); Monocytes # (Auto) 0.6 Thou/mm3 (0.0-0.8); Monocytes % (Auto) 12 % (0-12); Neutrophils # (Auto) 2.9 Thou/mm3 (1.8-7.7); Neutrophils % (Auto) 57 % (37-80); Nucleated Red Blood Cell % 0 /100 WBC (0); Platelet Count 174 Thou/mm3 (140-440); RDW Standard Deviation 41.5 fL (36.4-46.3); Red Blood Count 4.22 Miln/mm3 (4.00-5.20)
[2024-11-30 09:27] LABS: Alanine Aminotransferase 16 U/L (10-49); Albumin, Serum 4.3 gm/dL (3.5-5.0); Albumin/Globulin Ratio 1.7 (1.2-2.2); Alkaline Phosphatase 82 U/L (46-116); Anion Gap 12 (7-16); Aspartate Amino Transferase 17 U/L (0-34); BUN/Creatinine Ratio 16 Ratio (12-20); Bilirubin,Total 0.7 mg/dL (0.3-1.2); Blood Urea Nitrogen 13 mg/dL (9-23); Calcium 9.3 mg/dL (8.3-10.6); Calcium (Corrected) 9.3 mg/dL (8.5-10.1); Carbon Dioxide 25.1 mMol/L (20.0-31.0); Chloride 104 mMol/L (98-107); Creatinine (Component) 0.8 mg/dL (0.6-1.3); Globulin 2.5 gm/dL (2.3-3.5); Glucose 182 mg/dL (74-106); Osmolality,Calculated 286 (275-295); Potassium 4.2 mMol/L (3.4-5.1); Sodium 141 mMol/L (136-145); Thyroid Stimulating Hormone 4.12 uIU/mL (0.55-4.78); Total Protein 6.8 gm/dL (5.7-8.2); eGFR > 60 See Note
[2024-12-25 13:39] LABS: Basophils % (Auto) 1 % (0-2.5); Eosinophils # (Auto) 0.2 Thou/mm3 (0.0-0.5); Eosinophils % (Auto) 4 % (0-10); Hematocrit 36.5 % (36.0-46.0); Hemoglobin 12.6 g/dL (12.0-16.0); Immature Granulocytes % (Auto) 0 % (0-0); Immature Granulocytes Auto 0.02 Thou/mm3 (0.00-0.00); Lymphocytes # (Auto) 1.4 Thou/mm3 (1.0-4.8); Lymphocytes % (Auto) 26 % (10-50); Mean Corpuscular HGB Conc 34.5 g/dl (31.0-37.0); Mean Corpuscular Hemoglobin 30.3 pg (25.0-35.0); Mean Corpuscular Volume 88 fL (80-100); Monocytes # (Auto) 0.6 Thou/mm3 (0.0-0.8); Monocytes % (Auto) 11 % (0-12); Neutrophils # (Auto) 3.1 Thou/mm3 (1.8-7.7); Neutrophils % (Auto) 59 % (37-80); Nucleated Red Blood Cell % 0 /100 WBC (0); Platelet Count 174 Thou/mm3 (140-440); RDW Standard Deviation 42.5 fL (36.4-46.3); Red Blood Count 4.16 Miln/mm3 (4.00-5.20); White Blood Count 5.3 Thou/mm3 (3.6-11.0)
[2024-12-25 14:00] LABS: Alanine Aminotransferase 18 U/L (10-49); Albumin, Serum 4.4 gm/dL (3.5-5.0); Albumin/Globulin Ratio 1.8 (1.2-2.2); Alkaline Phosphatase 85 U/L (46-116); Anion Gap 11 (7-16); Aspartate Amino Transferase 20 U/L (0-34); BUN/Creatinine Ratio 14 Ratio (12-20); Bilirubin,Total 0.4 mg/dL (0.3-1.2); Blood Urea Nitrogen 11 mg/dL (9-23); Calcium 9.8 mg/dL (8.3-10.6); Calcium (Corrected) 9.8 mg/dL (8.5-10.1); Chloride 102 mMol/L (98-107); Creatinine (Component) 0.8 mg/dL (0.6-1.3); Globulin 2.4 gm/dL (2.3-3.5); Glucose 194 mg/dL (74-106); Osmolality,Calculated 280 (275-295); Potassium 3.6 mMol/L (3.4-5.1); Sodium 138 mMol/L (136-145); Thyroid Stimulating Hormone 4.75 uIU/mL (0.55-4.78); Total Protein 6.8 gm/dL (5.7-8.2); eGFR > 60 See Note
== END 2024-12-29 23:59 | disposition home or self-care (01) ==
LOC: SCTC 12:10
PROVIDERS: PCP Internal Medicine; Referring Provider Internal Medicine; Visit Provider Internal Medicine Hematology & Oncology
DX: Z51.11 Encounter for antineoplastic chemotherapy (principal); C50.812 Malignant neoplasm of overlapping sites of left female breast; Z17.421 Hormone receptor negative with human epidermal growth factor receptor 2 negative status
CPT/HCPCS: 36591; 80053; 84443; 85025; 96413; A4216; J1642; J7050; J9271

== ENCOUNTER 2025-01-21 15:10 | Outpatient (RCR) | payer BC, SELFPAY ==
[2025-01-14 15:47] LABS: Basophils # (Auto) 0.1 Thou/mm3 (0.0-0.2); Basophils % (Auto) 1 % (0-2.5); Eosinophils # (Auto) 0.2 Thou/mm3 (0.0-0.5); Eosinophils % (Auto) 3 % (0-10); Hematocrit 36.1 % (36.0-46.0); Hemoglobin 12.8 g/dL (12.0-16.0); Immature Granulocytes % (Auto) 1 % (0-0); Immature Granulocytes Auto 0.04 Thou/mm3 (0.00-0.00); Lymphocytes # (Auto) 1.6 Thou/mm3 (1.0-4.8); Lymphocytes % (Auto) 27 % (10-50); Mean Corpuscular HGB Conc 35.5 g/dl (31.0-37.0); Mean Corpuscular Hemoglobin 30.7 pg (25.0-35.0); Mean Corpuscular Volume 87 fL (80-100); Monocytes # (Auto) 0.6 Thou/mm3 (0.0-0.8); Monocytes % (Auto) 10 % (0-12); Neutrophils # (Auto) 3.7 Thou/mm3 (1.8-7.7); Neutrophils % (Auto) 59 % (37-80); Nucleated Red Blood Cell % 0 /100 WBC (0); Platelet Count 175 Thou/mm3 (140-440); RDW Standard Deviation 42.4 fL (36.4-46.3); Red Blood Count 4.17 Miln/mm3 (4.00-5.20); White Blood Count 6.2 Thou/mm3 (3.6-11.0)
[2025-01-14 16:09] LABS: Alanine Aminotransferase 19 U/L (10-49); Albumin, Serum 4.4 gm/dL (3.5-5.0); Albumin/Globulin Ratio 1.9 (1.2-2.2); Alkaline Phosphatase 83 U/L (46-116); Anion Gap 13 (7-16); Aspartate Amino Transferase 20 U/L (0-34); BUN/Creatinine Ratio 17 Ratio (12-20); Bilirubin,Total 0.5 mg/dL (0.3-1.2); Blood Urea Nitrogen 12 mg/dL (9-23); Calcium 9.2 mg/dL (8.3-10.6); Calcium (Corrected) 9.2 mg/dL (8.5-10.1); Carbon Dioxide 24.6 mMol/L (20.0-31.0); Chloride 103 mMol/L (98-107); Creatinine (Component) 0.7 mg/dL (0.6-1.3); Free T4 (Free Thyroxine) 1.13 ng/dL (0.89-1.76); Globulin 2.3 gm/dL (2.3-3.5); Glucose 160 mg/dL (74-106); Osmolality,Calculated 283 (275-295); Potassium 3.9 mMol/L (3.4-5.1); Sodium 141 mMol/L (136-145); Thyroid Stimulating Hormone 5.01 uIU/mL (0.55-4.78); Total Protein 6.7 gm/dL (5.7-8.2); eGFR > 60 See Note
--- NOTE | 2025-01-23 23:30 | CTCFLWUP_ITS ---
Patient: BEATA BUCKNER : 1965 Page 6 of 8 FOLLOW UP NOTE DATE OF SERVICE: 01/21/2025 NAME: BEATA BUCKNER ACCOUNT: [id number] : 1965 AGE: 59 INTERVAL HISTORY: Zandra Lawson, a female with history of stage 2 triple-negative invasive left breast cancer, presented with a new palpable mass in her left chest wall. Her history includes left breast mastectomy and completed chemotherapy with Keytruda, achieving complete response. Examination revealed a hard circular area on the left chest wall with skin sensitivity. Recent PET scan was negative for metastatic disease. She was referred to her original surgeon for urgent evaluation including ultrasound and possible biopsy, and Cullen testing was ordered to assess for potential recurrence. She will continue Keytruda pending further evaluation. Subjective: Chief Complaint Palpable mass in left breast History of Present Illness Zandra Lawson, a patient with a history of stage 2 triple-negative invasive left breast cancer, presents for follow-up. She underwent a left breast mastectomy and completed chemotherapy with Keytruda, achieving a complete response. The patient reports noticing a new area of concern in her left chest wall. She felt this while wearing her bra and expresses worry about it. The area is described as sensitive to touch but not painful. There is no mention of when she first noticed this change or any associated symptoms. Ms. Lawson states she has been using a water softener recently to address hard water issues, which she believes is helping with skin moisture. She denies any other new symptoms or concerns related to her cancer history or overall health status. Medications and Supplements - Keytruda - Part of Keynote trial - Started on 01/30/2024 Review of Systems Skin: Positive for skin sensitivity on the left breast area. Objective: Physical Examination Skin: Patient's skin is soft. Left breast skin is sensitive to touch. Breast: Left breast mastectomy site examined. Circular area palpated on left chest wall, described as hard. Area is not painful except for one specific spot. Skin is loose in the mastectomy area. 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 S/p ultrasound- guided left breast biopsy (11/14/2023) PET/CT scan (12/29/2023) negative for metastatic disease. Currently on neoadjuvant chemotherapy with pembrolizumab, paclitaxel and carboplatin followed by 4 cycles of AC chemotherapy. Neoadjuvant chemotherapy started on 01/30/2024. DATE OF DIAGNOSIS: Date of diagnosis 11/14/2023 STAGE/TNM: Stage IIa poorly differentiated triple negative invasive ductal carcinoma of the left breast. S/p ultrasound- guided left breast biopsy (11/14/2023) PET/CT scan (12/29/2023) negative for metastatic disease. TREATMENT HISTORY: Care?Plan Start?Date Cycle Day Intent TNBC?Pembro?17?cy?TaxCar?4?cy?AC?4?cy?Keynote?522 01/30/2024 1 21 Curative?(primary) HISTORY OF PRESENT ILLNESS: Beata Buckner is a 59-year-old ENG speaking female with history of type 2 diabetes, gastroesophageal reflux disease has the following oncology history. 10/07/2015: Bilateral screening mammograms? 09/12/2023: Bilateral screening mammograms 10/11/2023: Left breast ultrasound? 11/14/2023: Ultrasound-guided biopsy of the left breast mass 12/15/2023: Norma hereditary cancer test?BRCA 1and2 negative 12/22/2023: Echocardiogram showed an LVEF of 60% 12/29/2023: PET/CT scan? 01/30/2024: Ms. Buckner is started on neoadjuvant chemotherapy with pembrolizumab, Taxol and carboplatin. 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 Tobacco?Use:?Denies ETOH Use:?1-2 gin/tonic or wine per week x 18 yrs Drug?Note:?CBD gummies for sleep - 2-3 yrs Social?History?Note:?Lives?with? [employer] HISTORY: Menarche?-?Age:?11 Menopause:?2006 :?3 Live?Births:?1 Age?1st?:?25 Gynecological?Note:?2?abortions MEDICATIONS: 1. multivitamin - 1 tab Daily 2. Ozempic - 0.25 mg or 0.5 mg (2 mg/3 mL) Weekly Medications Last Reconciled by Caterina Michele MA on 01/21/2025 ALLERGIES: walnuts; latex; latex REVIEW OF SYSTEMS: A complete 14-point review of systems was performed and is negative except as noted in interval history. PHYSICAL EXAMINATION: VITAL SIGNS: Temperature?98, B/P?134/89, Oxygen?Saturation?97% Weight?234?lbs (Change?since?01/15/25:?-1.2?lbs) PAIN: 2 - Mild pain ECOG Performance Status: 0 - Asymptomatic and fully active EYE: Conjunctivae is white MOUTH: Oral cavity is dry. Adenopathy is not palpable in the neck. CHEST: No palpable masses CARDIAC: Rhythm regular, no murmurs or gallops present. ABDOMEN: Soft. No hepatomegaly. No splenomegaly. EXTREMITIES: No pedal edema or cyanosis. LABORATORY DATA: I have personally reviewed and interpreted each of the patient?s relevant lab tests, abnormal findings are below: Date 12/25/24 01/14/25 ??WHITE?BLOOD?COUNT?(Thou/mm3) 5.3 6.2 ??RED?BLOOD?COUNT?(Miln/mm3) 4.16 4.17 ??HEMOGLOBIN?(gm/dl) 12.6 12.8 ??HEMATOCRIT?(%) 36.5 36.1 ??PLATELET?COUNT?(Thou/mm3) 174 175 ??NEUTROPHILS?%,?AUTO?(%) 59 59 ??LYMPH?%,?AUTO?(%) 26 27 ??NEUTROPHILS,?AUTO?(Thou/mm3) 3.1 3.7 ??GLUCOSE,RANDOM?(mg/dL) 194?H 160?H ??BLOOD?UREA?NITROGEN?(mg/dL) 11 12 ??CREATININE?(mg/dL) 0.80 0.70 ??SODIUM?(mmol/L) 138 141 ??POTASSIUM?(mmol/L) 3.6 3.9 ??CHLORIDE?(mmol/L) 102 103 ??CrCl?(CandG)?(ml/min) 89.03 102.89 ??AST/SGOT?(Unit/L) 20 20 ??ALT/SGPT?(Unit/L) 18 19 ??ALKALINE?PHOSPHATASE?(Unit/L) 85 83 ??BILIRUBIN,?TOTAL?(mg/dL) 0.4 0.5 ??PROTEIN?TOTAL?(gm/dl) 6.8 6.7 ??ALBUMIN,?SERUM?(gm/dl) 4.4 4.4 ??GLOBULIN?(gm/dl) 2.4 2.3 ??ALBUMIN/GLOBULIN?RATIO 1.8 1.9 ??CALCIUM,?SERUM?(mg/dL) 9.8 9.2 ??CALCIUM?SERUM?(CORRECTED)?(mg/dL) 9.8 9.2 ASSESSMENT/PLAN: Zandra Lawson, female patient with history of stage 2 triple-negative invasive left breast cancer, status post left breast mastectomy and chemotherapy, presenting for follow-up with a new palpable mass in the left breast area. Stage IIa (T2 N0 M0) poorly differentiated triple negative invasive ductal carcinoma of the left breast. S/p ultrasound-guided left breast biopsy (11/14/2023) Currently on neoadjuvant chemotherapy (keynote 522 protocol). Patient is on cycle 11 of Keytruda BRCA 1and2 negative PET scan negative for metastatic disease. CTA was negative Assessment: Patient with history of stage 2 triple-negative invasive left breast cancer, status post left breast mastectomy and chemotherapy, now presents with a palpable mass in the left breast area. The patient had a complete response to chemotherapy, and all breast tissue was removed during mastectomy with negative margins. Previous PET scan in November 2023 was negative for metastatic disease. The patient is currently on Keytruda (pembrolizumab) as part of a clinical trial. Given the patient's history and the unexpected finding of a palpable mass in the mastectomy site, further evaluation is warranted to rule out local recurrence. Plan: - Refer to Dr. Mccormick (original surgeon) for urgent evaluation, including ultrasound and possible stereotactic biopsy of the left breast area - Order Cullen testing (circulating tumor DNA blood test) to assess for potential recurrence - Consider plastic surgery consultation for potential reconstruction options if the mass is benign - Continue current treatment regimen, including Keytruda, pending further evaluation results - Educate patient on the importance of breast self-exams and reporting any new changes promptly Status post left breast mastectomy for triple-negative breast cancer Assessment: Patient underwent left breast mastectomy by Dr. Mccormick in [place] for stage 2 triple-negative invasive breast cancer. The surgery was complicated by the absence of a tumor marker, which was supposed to have been placed during the initial biopsy but was not found on subsequent imaging. Despite this, the surgeon removed all breast tissue, and pathology showed one benign lymph node. The patient had a complete response to neoadjuvant chemotherapy, with the tumor being undetectable on imaging 3 months after starting treatment. Genetic testing was negative for hereditary cancer syndromes. Plan: - Continue follow-up care as per oncology guidelines for triple-negative breast cancer survivors - Maintain vigilance for potential local or distant recurrence through regular clinical exams and appropriate imaging studies - Discuss potential reconstruction options with the patient, respecting her current preference to not pursue reconstruction - Encourage continued use of breast prosthesis as desired by the patient ORDERS: Order # Description [id number] CBC + Comprehensive Metabolic Panel [id number] Lab Appointment [id number] CBC + Comprehensive Metabolic Panel [id number] Lab Appointment RETURN TO CLINIC: BILLING AND COMPLIANCE: I reviewed external records from providers outside my specialty as summarized above. I spent a total of 50 minutes on this patient?s care on the day of their visit excluding time spent related to any billed procedures. This time includes time spent with the patient as well as time spent documenting in the medical record, reviewing patients records and tests, obtaining history, placing orders, communicating with other healthcare professionals, counseling the patient, family or caregiver, and/or care coordination for the diagnoses above. Electronically Signed by: Mikael Macias MD T: 11:28 PM CC: PCP: Maged Hallman Referring: Maged Hallman This document was completed utilizing speech recognition software. Grammatical errors, random word insertions, pronoun errors, and incomplete sentences are an occasional consequence of this system due to software limitations, ambient noise, and hardware issues. Any formal questions or concerns about the content, text or information contained within the body of this dictation should be directly addressed to the provider for clarification.
== END 2025-01-28 23:59 | disposition home or self-care (01) ==
LOC: SCTC 15:10
PROVIDERS: PCP Internal Medicine; Referring Provider Internal Medicine; Visit Provider Internal Medicine Hematology & Oncology
DX: Z51.11 Encounter for antineoplastic chemotherapy (principal); C50.812 Malignant neoplasm of overlapping sites of left female breast; Z17.421 Hormone receptor negative with human epidermal growth factor receptor 2 negative status; Z90.12 Acquired absence of left breast and nipple
CPT/HCPCS: 36591; 80053; 84439; 84443; 85025; 96413; 99212; A4216; J1642; J7050; J9271; G0463

== ENCOUNTER → 2025-02-07 | Outpatient (CLI) | payer BC, SELFPAY ==
--- NOTE | 2025-02-07 14:00 | XR_ITS ---
Examination: Breast ultrasound, unilateral, left Date and time of exam: February 07, 2025 1455 hours INDICATIONS: Palpable lump in the chest. 2 months, history breast carcinoma 2023 mastectomy August 2024, family history breast cancer, mammogram left breast October 11, 2023 30 mm spiculated mass outer left breast Technique: Real-time ortega scale ultrasonographic imaging performed left breast including all 4 quadrants as well as nipple retroareolar and axillary region. Findings: 3:00 circumscribed nodule 5 x 4 mm 3:00 nodule 4 x 4 millimeter IMPRESSION: BI-RADS Category 3: Probably benign findings One additional 6 month left breast sonogram follow-up is needed
== END | disposition home or self-care (01) ==
PROVIDERS: PCP Internal Medicine; Referring Provider Internal Medicine Hematology & Oncology; Visit Provider Internal Medicine Hematology & Oncology
DX: N63.25 Unspecified lump in the left breast, overlapping quadrants (principal); C50.912 Malignant neoplasm of unspecified site of left female breast; C50.019 Malignant neoplasm of nipple and areola, unspecified female breast
CPT/HCPCS: 76641

== ENCOUNTER 2025-02-28 09:10 | Outpatient (RCR) | payer BC, SELFPAY ==
[2025-02-04 13:57] LABS: Basophils # (Auto) 0.0 Thou/mm3 (0.0-0.2); Basophils % (Auto) 1 % (0-2.5); Eosinophils # (Auto) 0.2 Thou/mm3 (0.0-0.5); Eosinophils % (Auto) 3 % (0-10); Hematocrit 35.8 % (36.0-46.0); Hemoglobin 12.5 g/dL (12.0-16.0); Immature Granulocytes Auto 0.01 Thou/mm3 (0.00-0.00); Lymphocytes # (Auto) 1.5 Thou/mm3 (1.0-4.8); Lymphocytes % (Auto) 28 % (10-50); Mean Corpuscular HGB Conc 34.9 g/dl (31.0-37.0); Mean Corpuscular Hemoglobin 30.3 pg (25.0-35.0); Mean Corpuscular Volume 87 fL (80-100); Monocytes # (Auto) 0.5 Thou/mm3 (0.0-0.8); Monocytes % (Auto) 10 % (0-12); Neutrophils # (Auto) 3.2 Thou/mm3 (1.8-7.7); Neutrophils % (Auto) 59 % (37-80); Nucleated Red Blood Cell # 0.00 Thou/mm3 (0.00-0.00); Nucleated Red Blood Cell % 0 /100 WBC (0); Platelet Count 173 Thou/mm3 (140-440); RDW Standard Deviation 42.6 fL (36.4-46.3); Red Blood Count 4.12 Miln/mm3 (4.00-5.20); White Blood Count 5.4 Thou/mm3 (3.6-11.0)
[2025-02-04 14:20] LABS: Alanine Aminotransferase 16 U/L (10-49); Albumin, Serum 4.3 gm/dL (3.5-5.0); Albumin/Globulin Ratio 1.8 (1.2-2.2); Alkaline Phosphatase 75 U/L (46-116); Anion Gap 11 (7-16); Aspartate Amino Transferase 18 U/L (0-34); BUN/Creatinine Ratio 14 Ratio (12-20); Bilirubin,Total 0.5 mg/dL (0.3-1.2); Blood Urea Nitrogen 11 mg/dL (9-23); Calcium 9.0 mg/dL (8.3-10.6); Calcium (Corrected) 9.0 mg/dL (8.5-10.1); Carbon Dioxide 24.8 mMol/L (20.0-31.0); Chloride 107 mMol/L (98-107); Creatinine (Component) 0.8 mg/dL (0.6-1.3); Free T4 (Free Thyroxine) 1.07 ng/dL (0.89-1.76); Globulin 2.4 gm/dL (2.3-3.5); Glucose 164 mg/dL (74-106); Osmolality,Calculated 288 (275-295); Potassium 3.7 mMol/L (3.4-5.1); Sodium 143 mMol/L (136-145); Thyroid Stimulating Hormone 5.39 uIU/mL (0.55-4.78); Total Protein 6.7 gm/dL (5.7-8.2); eGFR > 60 See Note
[2025-02-25 13:48] LABS: Basophils # (Auto) 0.0 Thou/mm3 (0.0-0.2); Basophils % (Auto) 1 % (0-2.5); Eosinophils # (Auto) 0.2 Thou/mm3 (0.0-0.5); Eosinophils % (Auto) 3 % (0-10); Hematocrit 37.9 % (36.0-46.0); Hemoglobin 13.3 g/dL (12.0-16.0); Immature Granulocytes Auto 0.01 Thou/mm3 (0.00-0.00); Lymphocytes # (Auto) 1.5 Thou/mm3 (1.0-4.8); Lymphocytes % (Auto) 25 % (10-50); Mean Corpuscular HGB Conc 35.1 g/dl (31.0-37.0); Mean Corpuscular Hemoglobin 31.2 pg (25.0-35.0); Mean Corpuscular Volume 89 fL (80-100); Monocytes # (Auto) 0.6 Thou/mm3 (0.0-0.8); Monocytes % (Auto) 11 % (0-12); Neutrophils # (Auto) 3.5 Thou/mm3 (1.8-7.7); Neutrophils % (Auto) 60 % (37-80); Nucleated Red Blood Cell # 0.00 Thou/mm3 (0.00-0.00); Nucleated Red Blood Cell % 0 /100 WBC (0); Platelet Count 167 Thou/mm3 (140-440); RDW Standard Deviation 41.7 fL (36.4-46.3); Red Blood Count 4.26 Miln/mm3 (4.00-5.20); White Blood Count 5.7 Thou/mm3 (3.6-11.0)
[2025-02-25 14:39] LABS: Alanine Aminotransferase 20 U/L (10-49); Albumin, Serum 4.4 gm/dL (3.5-5.0); Albumin/Globulin Ratio 1.8 (1.2-2.2); Alkaline Phosphatase 84 U/L (46-116); Anion Gap 11 (7-16); Aspartate Amino Transferase 22 U/L (0-34); BUN/Creatinine Ratio 14 Ratio (12-20); Bilirubin,Total 0.8 mg/dL (0.3-1.2); Blood Urea Nitrogen 11 mg/dL (9-23); Calcium 9.1 mg/dL (8.3-10.6); Calcium (Corrected) 9.1 mg/dL (8.5-10.1); Carbon Dioxide 24.3 mMol/L (20.0-31.0); Chloride 104 mMol/L (98-107); Creatinine (Component) 0.8 mg/dL (0.6-1.3); Free T4 (Free Thyroxine) 1.08 ng/dL (0.89-1.76); Globulin 2.5 gm/dL (2.3-3.5); Glucose 164 mg/dL (74-106); Osmolality,Calculated 280 (275-295); Potassium 4.0 mMol/L (3.4-5.1); Sodium 139 mMol/L (136-145); Thyroid Stimulating Hormone 4.76 uIU/mL (0.55-4.78); Total Protein 6.9 gm/dL (5.7-8.2); eGFR > 60 See Note
--- NOTE | 2025-03-04 06:07 | CTCFLWUP_ITS ---
Patient: BEATA BUCKNER : 1965 Page 3 of 4 FOLLOW UP NOTE DATE OF SERVICE: 02/28/2025 NAME: BEATA BUCKNER ACCOUNT: [id number] : 1965 AGE: 59 INTERVAL HISTORY: Patient with a triple negative breast cancer here for follow-up. Patient had chemotherapy with a complete response and was continued on remaining chemotherapy after the surgery. Patient is on maintenance Keytruda and will be needing 2 more cycle as she had no Keytruda with the first cycle as well as had no Keytruda during break with surgery. There was a concern for circular hard mass on the left chest wall with skin sensitivity and was seen by Dr. Mccormick for follow-up. 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 S/p ultrasound- guided left breast biopsy (11/14/2023) PET/CT scan (12/29/2023) negative for metastatic disease. Currently on neoadjuvant chemotherapy with pembrolizumab, paclitaxel and carboplatin followed by 4 cycles of AC chemotherapy. Neoadjuvant chemotherapy started on 01/30/2024. Malignant neoplasm of nipple and areola, unspecified female breast [ICD10] C50.019 DATE OF DIAGNOSIS: 11/14/2023 STAGE/TNM: Stage IIa poorly differentiated triple negative breast cancer supposed neoadjuvant chemotherapy with paclitaxel carboplatin and Keytruda followed by surgery, followed by AC Keytruda and now on maintenance Keytruda TREATMENT HISTORY: Care Plan Name Start Date Cycle Day Intent TNBC Pembro 17 cy TaxCar 4 cy AC 4 cy Keynote 522 01/30/2024 1 21 Curative (primary) Pembrolizumab alone 02/28/2025 1 21 Induction-Primary HISTORY OF PRESENT ILLNESS: Patient was diagnosed with ductal carcinoma invasive on 11/14/2023 Had a biopsy which showed ER negative MN negative HER2 1+ Patient was started on neoadjuvant chemotherapy OTHER MEDICAL HISTORY/CONDITIONS: Ductal invasive carcinoma left breast 11/14/23 Diabetes GERD Right knee surgery - 2022 Cholecystectomy - 2009 Lap band for weight loss - 2005 - 1991 FAMILY HISTORY: Mother:?skin?-?dx?60's Cancer History:?Mat grandfather-multiple myeloma; Pat grandfather-prostate SOCIAL HISTORY: 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 Tobacco?Use:?Denies ETOH Use:?1-2 gin/tonic or wine per week x 18 yrs Drug?Note:?CBD gummies for sleep - 2-3 yrs Social?History?Note:?Lives?with? RN ONCOLOGY CLINICAL HISTORY: Menarche?-?Age:?11 Menopause:?2006 :?3 Live?Births:?1 Age?1st?:?25 Vaginal?Bleeding:?0-None Gynecological?Note:?2?abortions MEDICATIONS: 1. multivitamin - 1 tab Daily 2. Ozempic - 0.25 mg or 0.5 mg (2 mg/3 mL) Weekly Medications Last Reconciled by Caterina Murguia MD on 02/28/2025 ALLERGIES: walnuts; latex; latex REVIEW OF SYSTEMS: A complete 14-point review of systems was performed and is negative except as noted in interval history. PHYSICAL EXAMINATION: VITAL SIGNS: Temperature?99.6, B/P?155/92, Oxygen?Saturation?96% Weight?236?lbs (Change?since?02/26/25:?-0.4?lbs) PAIN: 0 - No pain ECOG Performance Status: 0 - Asymptomatic and fully active GENERAL APPEARANCE: Appears well, in no apparent distress, appropriately interactive. HEENT: Normocephalic, no temporal wasting, normal conjunctiva, no scleral icterus, normal hearing, lips without lesions, neck normal range of motion. CARDIOVASCULAR: Not assessed. PULMONARY: Normal respiratory effort, no respiratory distress or use of accessory muscles, speaking in full sentences, no tachypnea. EXTREMITIES: No pedal edema or cyanosis. SKIN: Normal skin appearance. NEUROLOGIC: Alert and oriented x4. PSHYCHIATRIC: Appropriate affect, mood normal, behavior normal, intact thought and speech. LABORATORY DATA: I have personally reviewed and interpreted each of the patient?s relevant lab tests, abnormal findings are below: Date 02/04/2025 02/25/2025 Time 11:16 AM 11:15 AM ??WHITE BLOOD COUNT (Thou/mm3) 5.4 5.7 ??RED BLOOD COUNT (Miln/mm3) 4.12 4.26 ??HEMOGLOBIN (gm/dl) 12.5 13.3 ??HEMATOCRIT (%) 35.8 L 37.9 ??PLATELET COUNT (Thou/mm3) 173 167 ??NEUTROPHILS %, AUTO (%) 59 60 ??LYMPH %, AUTO (%) 28 25 ??NEUTROPHILS, AUTO (Thou/mm3) 3.2 3.5 ??GLUCOSE,RANDOM (mg/dL) 164 H 164 H ??BLOOD UREA NITROGEN (mg/dL) 11 11 ??CREATININE (mg/dL) 0.80 0.80 ??SODIUM (mmol/L) 143 139 ??POTASSIUM (mmol/L) 3.7 4.0 ??CHLORIDE (mmol/L) 107 104 ??CrCl (CandG) (ml/min) 89.72 89.98 ??AST/SGOT (Unit/L) 18 22 ??ALT/SGPT (Unit/L) 16 20 ??ALKALINE PHOSPHATASE (Unit/L) 75 84 ??BILIRUBIN, TOTAL (mg/dL) 0.5 0.8 ??PROTEIN TOTAL (gm/dl) 6.7 6.9 ??ALBUMIN, SERUM (gm/dl) 4.3 4.4 ??GLOBULIN (gm/dl) 2.4 2.5 ??ALBUMIN/GLOBULIN RATIO 1.8 1.8 ??CALCIUM, SERUM (mg/dL) 9.0 9.1 ??CALCIUM SERUM (CORRECTED) (mg/dL) 9.0 9.1 ASSESSMENT/PLAN: Stage IIa (T2 N0 M0) poorly differentiated triple negative invasive ductal carcinoma of the left breast. S/p ultrasound-guided left breast biopsy (11/14/2023) Currently on neoadjuvant chemotherapy (keynote 522 protocol). Patient is on cycle 11 of Keytruda BRCA 1and2 negative PET scan negative for metastatic disease. CTA was negative Patient was noted to have palpable mass in the left breast areaRefer to Dr. Mccormick who evaluated Ms. Buckner. Evaluation, including ultrasound and possible stereotactic biopsy of the left breast area - Order Cullen testing (circulating tumor DNA blood test) to assess for potential recurrence and patient is also scheduled for plastic surgery. Need to complete 2 more cycles of Keytruda will continue RTC in 6 weeks for follow-up in 6 months after completion ORDERS: Order # Description [id number] CBC + Comprehensive Metabolic Panel [id number] Lab Appointment [id number] Comprehensive Metabolic Panel - 12 + CBC with Auto Diff + CA 15-3 [id number] 3D Mammogram Screening + Bilateral [id number] MD Follow Up 6 Month [id number] CBC + Comprehensive Metabolic Panel + CEA [id number] Lab Appointment RETURN TO CLINIC: I reviewed the diagnosis, prognosis, and recommended treatment/procedure options with the patient (and/or their legal customer service representative teacher), including the potential benefits, risks, side effects and alternative therapies. We also discussed the option of no treatment and the possibility of clinical trial participation, if applicable. All questions were addressed, and they demonstrated understanding. They provided informed consent to proceed with the proposed plan of care. BILLING AND COMPLIANCE: I reviewed external records from providers outside my specialty as summarized above. I spent a total of 50 minutes on this patient?s care on the day of their visit excluding time spent related to any billed procedures. This time includes time spent with the patient as well as time spent documenting in the medical record, reviewing patients records and tests, obtaining history, placing orders, communicating with other healthcare professionals, counseling the patient, family or caregiver, and/or care coordination for the diagnoses above. Electronically Signed by: {Object.Sanct_ID*PnP.NameFL@M}, {Object.Sanct_ID*PnP.Suffix@U} D: {Object.Sanct_Date} T: {Object.Sanct_Time} CC: PCP: Maged Hallman Referring: Maged Hallman This document was completed utilizing speech recognition software. Grammatical errors, random word insertions, pronoun errors, and incomplete sentences are an occasional consequence of this system due to software limitations, ambient noise, and hardware issues. Any formal questions or concerns about the content, text or information contained within the body of this dictation should be directly addressed to the provider for clarification.
== END 2025-02-28 23:59 | disposition home or self-care (01) ==
LOC: SCTC 09:10
PROVIDERS: PCP Internal Medicine; Referring Provider Internal Medicine; Visit Provider Internal Medicine Hematology & Oncology
DX: Z51.11 Encounter for antineoplastic chemotherapy (principal); C50.812 Malignant neoplasm of overlapping sites of left female breast; Z17.421 Hormone receptor negative with human epidermal growth factor receptor 2 negative status
CPT/HCPCS: 36591; 80053; 84439; 84443; 85025; 96413; 99212; A4216; J1642; J7050; J9271; G0463

== ENCOUNTER → 2025-03-17 | Outpatient (CLI) | payer BC, SELFPAY ==
--- NOTE | 2025-03-17 14:00 | ECHO_ITS ---
Transthoracic Echo Report Ht (in): 65 Wt (lb): 232 Exam Location: Echo Lab Status: Preadmit Stiff Leg Derrick Operator: Shannan Rockwell Indications: Procedure Performed: BP: / HR: Technical Quality: Poor MEASUREMENTS (Male / Female) Normal Values 2D ECHO LV Diastolic Diameter PLAX 4.2 cm 4.2 - 5.9 / 3.9 - 5.3 cm LV Systolic Diameter PLAX 2.9 cm IVS Diastolic Thickness 1.0 cm 0.6 - 1.0 / 0.6 - 0.9 cm LVPW Diastolic Thickness 1.2 cm 0.6 - 1.0 / 0.6 - 0.9 cm LV Relative Wall Thickness 0.5 LVOT Diameter 2.2 cm Aortic Root Diameter 2.7 cm LA Systolic Diameter LX 3.8 cm 3.0 - 4.0 / 2.7 - 3.8 cm LV Ejection Fraction MOD BP 42.8 % >= 55 % LV Ejection Fraction MOD 4C 45.9 % LV Ejection Fraction 4C AL 47.4 % LV Ejection Fraction MOD 2C 38.1 % LV Ejection Fraction 2C AL 43.4 % LA Volume Index 14.7 cm?/m? 16 - 28 cm?/m? Ascending Aorta Diameter 3.1 cm M-MODE Aortic Root Diameter MM 2.7 cm LA Systolic Diameter MM 3.9 cm LA Ao Ratio MM 1.4 AV Cusp Separation MM 1.7 cm DOPPLER AV Peak Velocity 103.0 cm/s AV Peak Gradient 4.2 mmHg AV Mean Gradient 2.0 mmHg AV Velocity Time Integral 21.3 cm LVOT Peak Velocity 72.4 cm/s LVOT Peak Gradient 2.1 mmHg LVOT Velocity Time Integral 17.4 cm AV Area Cont Eq vti 3.1 cm? AV Area Cont Eq pk 2.7 cm? MV Area PHT 5.5 cm? MR Peak Velocity 471.5 cm/s MR Peak Gradient 88.9 mmHg Mitral E Point Velocity 50.0 cm/s Mitral A Point Velocity 89.7 cm/s Mitral E to A Ratio 0.6 LV E' Lateral Velocity 4.2 cm/s Mitral E to LV E' Lateral Ratio 11.8 LV E' Septal Velocity 4.6 cm/s Mitral E to LV E' Septal Ratio 10.9 TR Peak Velocity 246.0 cm/s TR Peak Gradient 24.2 mmHg PV Peak Velocity 97.7 cm/s PV Peak Gradient 3.8 mmHg FINDINGS Left Ventricle Normal left ventricular size, wall thickness, systolic function with no obvious regional wall motion abnormalities. The ejection fraction is visually estimated at 50-55%. There is grade I diastolic dysfunction of the left ventricle (impaired relaxation pattern). Right Ventricle The right ventricle is normal in size and systolic function. Left Atrium The left atrium is normal by two-dimensional, color flow and Doppler imaging with no structural abnormalities, no thrombus formation present. Right Atrium The right atrium is normal by two-dimensional imaging, color flow and Doppler imaging with no structural abnormalities, no thrombus formation present. Atrial Septum The interatrial septum appears normal with no evidence of a shunt. Aorta The aorta is normal by two-dimensional, color flow and Doppler interrogation. Mitral Valve The mitral valve is normal by two-dimensional, color flow and Doppler interrogation. Mild mitral regurgitation. Aortic Valve The aortic valve is trileaflet and normal by two-dimensional, color flow and Doppler interrogation. There is no significant aortic valve regurgitation. Tricuspid Valve The tricuspid valve is normal by two-dimensional, color flow and Doppler interrogation. There is mild tricuspid valve regurgitation. Pulmonic Valve Trivial pulmonic valve regurgitation. Vessels The pulmonary artery appears normal. The inferior vena cava pulmonary and hepatic veins appear normal. Pericardium The pericardium is normal by two-dimensional imaging. There is no significant pericardial effusion. CONCLUSIONS Indication: Malignant neoplasm of unspecified site of left female breast The transthoracic study is normal by two-dimensional, color flow imaging and Doppler interrogation. Normal LV size, wall thickness. Estimated EF at 50-55%. There is grade I diastolic dysfunction. The RV is normal in size and systolic function. Trace mitral and trace tricuspid regurgitation No wall motion abnormalities Lanette Valdez (Electronically Signed) Final Date: 17 March 2025 17:39
== END | disposition home or self-care (01) ==
LOC: SDIM 03-25 13:52
PROVIDERS: PCP Internal Medicine; Referring Provider Internal Medicine Hematology & Oncology; Visit Provider Internal Medicine Hematology & Oncology
DX: I08.1 Rheumatic disorders of both mitral and tricuspid valves (principal); I50.30 Unspecified diastolic (congestive) heart failure; C50.912 Malignant neoplasm of unspecified site of left female breast
CPT/HCPCS: 93306

== ENCOUNTER 2025-03-26 12:53 | Outpatient (RCR) | payer BC, SELFPAY ==
[2025-03-25 15:46] LABS: Basophils # (Auto) 0.1 Thou/mm3 (0.0-0.2); Basophils % (Auto) 1 % (0-2.5); Eosinophils # (Auto) 0.2 Thou/mm3 (0.0-0.5); Eosinophils % (Auto) 4 % (0-10); Hematocrit 38.1 % (36.0-46.0); Hemoglobin 13.2 g/dL (12.0-16.0); Immature Granulocytes Auto 0.01 Thou/mm3 (0.00-0.00); Lymphocytes # (Auto) 1.7 Thou/mm3 (1.0-4.8); Lymphocytes % (Auto) 26 % (10-50); Mean Corpuscular HGB Conc 34.6 g/dl (31.0-37.0); Mean Corpuscular Hemoglobin 31.0 pg (25.0-35.0); Mean Corpuscular Volume 89 fL (80-100); Monocytes # (Auto) 0.6 Thou/mm3 (0.0-0.8); Monocytes % (Auto) 9 % (0-12); Neutrophils # (Auto) 3.7 Thou/mm3 (1.8-7.7); Neutrophils % (Auto) 59 % (37-80); Nucleated Red Blood Cell # 0.00 Thou/mm3 (0.00-0.00); Nucleated Red Blood Cell % 0 /100 WBC (0); Platelet Count 185 Thou/mm3 (140-440); RDW Standard Deviation 41.8 fL (36.4-46.3); Red Blood Count 4.26 Miln/mm3 (4.00-5.20); White Blood Count 6.3 Thou/mm3 (3.6-11.0)
[2025-03-25 16:09] LABS: Alanine Aminotransferase 17 U/L (10-49); Albumin, Serum 4.4 gm/dL (3.5-5.0); Albumin/Globulin Ratio 2.0 (1.2-2.2); Alkaline Phosphatase 76 U/L (46-116); Anion Gap 14 (7-16); Aspartate Amino Transferase 18 U/L (0-34); BUN/Creatinine Ratio 14 Ratio (12-20); Bilirubin,Total 0.6 mg/dL (0.3-1.2); Blood Urea Nitrogen 10 mg/dL (9-23); Calcium 9.7 mg/dL (8.3-10.6); Calcium (Corrected) 9.7 mg/dL (8.5-10.1); Carbon Dioxide 24.1 mMol/L (20.0-31.0); Chloride 103 mMol/L (98-107); Creatinine (Component) 0.7 mg/dL (0.6-1.3); Free T4 (Free Thyroxine) 1.09 ng/dL (0.89-1.76); Globulin 2.2 gm/dL (2.3-3.5); Glucose 116 mg/dL (74-106); Osmolality,Calculated 281 (275-295); Potassium 3.9 mMol/L (3.4-5.1); Sodium 141 mMol/L (136-145); Thyroid Stimulating Hormone 4.47 uIU/mL (0.55-4.78); Total Protein 6.6 gm/dL (5.7-8.2); eGFR > 60 See Note
== END 2025-03-31 23:59 | disposition home or self-care (01) ==
LOC: SCTC 12:53
PROVIDERS: PCP Internal Medicine; Referring Provider Internal Medicine; Visit Provider Internal Medicine Hematology & Oncology
DX: Z51.11 Encounter for antineoplastic chemotherapy (principal); C50.812 Malignant neoplasm of overlapping sites of left female breast; Z17.421 Hormone receptor negative with human epidermal growth factor receptor 2 negative status
CPT/HCPCS: 36591; 80053; 84439; 84443; 85025; 96413; A4216; J1642; J7050; J9271

== ENCOUNTER → 2025-04-04 | Outpatient (CLI) | payer BC, SELFPAY ==
--- NOTE | 2025-04-04 09:45 | XR_ITS ---
Examination: Screening digital mammography, bilateral Computer aided detection 3-D breast Tomosynthesis, bilateral Date and time of exam: April 04, 2025 0934 hours, compared to mammograms dating to July 19, 2009 Indication: Screening Technique: Nonmagnified MLO, CC views of the breasts to been obtained, reconstructed from 3-D Tomosynthesis images. R2 computer aided detection program utilized for evaluation of suspicious masses and/or abnormal calcifications. 3-D Tomosynthesis images obtained. Findings: Scattered areas of fibroglandular density. Decreased left breast volume consistent with history left breast cancer post treatment Surgical clips anterior left breast Benign calcifications. No interval suspicious masses Impression: BI-RADS category II: Benign Findings. Recommend 1 year follow-up mammogram.
== END | disposition home or self-care (01) ==
LOC: CDIM 09:36
PROVIDERS: PCP Internal Medicine; Referring Provider Internal Medicine Hematology & Oncology; Visit Provider Internal Medicine Hematology & Oncology
DX: Z12.31 Encounter for screening mammogram for malignant neoplasm of breast (principal); R92.323 Mammographic fibroglandular density, bilateral breasts; R92.1 Mammographic calcification found on diagnostic imaging of breast; C50.912 Malignant neoplasm of unspecified site of left female breast; C50.019 Malignant neoplasm of nipple and areola, unspecified female breast
CPT/HCPCS: 77063; 77067

== ENCOUNTER 2025-04-16 12:51 | Outpatient (RCR) | payer BC, SELFPAY ==
[2025-04-15 14:16] LABS: Basophils # (Auto) 0.1 Thou/mm3 (0.0-0.2); Basophils % (Auto) 1 % (0-2.5); Eosinophils # (Auto) 0.2 Thou/mm3 (0.0-0.5); Eosinophils % (Auto) 4 % (0-10); Hematocrit 37.1 % (36.0-46.0); Hemoglobin 13.0 g/dL (12.0-16.0); Immature Granulocytes Auto 0.02 Thou/mm3 (0.00-0.00); Lymphocytes # (Auto) 1.8 Thou/mm3 (1.0-4.8); Lymphocytes % (Auto) 28 % (10-50); Mean Corpuscular HGB Conc 35.0 g/dl (31.0-37.0); Mean Corpuscular Hemoglobin 31.1 pg (25.0-35.0); Mean Corpuscular Volume 89 fL (80-100); Monocytes # (Auto) 0.6 Thou/mm3 (0.0-0.8); Monocytes % (Auto) 10 % (0-12); Neutrophils # (Auto) 3.7 Thou/mm3 (1.8-7.7); Neutrophils % (Auto) 58 % (37-80); Nucleated Red Blood Cell # 0.00 Thou/mm3 (0.00-0.00); Nucleated Red Blood Cell % 0 /100 WBC (0); Platelet Count 165 Thou/mm3 (140-440); RDW Standard Deviation 42.3 fL (36.4-46.3); Red Blood Count 4.18 Miln/mm3 (4.00-5.20); White Blood Count 6.3 Thou/mm3 (3.6-11.0)
[2025-04-15 14:53] LABS: Alanine Aminotransferase 16 U/L (10-49); Albumin, Serum 4.3 gm/dL (3.5-5.0); Albumin/Globulin Ratio 2.0 (1.2-2.2); Alkaline Phosphatase 78 U/L (46-116); Anion Gap 11 (7-16); Aspartate Amino Transferase 20 U/L (0-34); BUN/Creatinine Ratio 14 Ratio (12-20); Bilirubin,Total 0.8 mg/dL (0.3-1.2); Blood Urea Nitrogen 10 mg/dL (9-23); Calcium 9.4 mg/dL (8.3-10.6); Calcium (Corrected) 9.4 mg/dL (8.5-10.1); Carbon Dioxide 25.0 mMol/L (20.0-31.0); Chloride 103 mMol/L (98-107); Creatinine (Component) 0.7 mg/dL (0.6-1.3); Free T4 (Free Thyroxine) 1.05 ng/dL (0.89-1.76); Globulin 2.2 gm/dL (2.3-3.5); Glucose 142 mg/dL (74-106); Osmolality,Calculated 278 (275-295); Potassium 4.0 mMol/L (3.4-5.1); Sodium 139 mMol/L (136-145); Thyroid Stimulating Hormone 5.52 uIU/mL (0.55-4.78); Total Protein 6.5 gm/dL (5.7-8.2); eGFR > 60 See Note
== END 2025-04-30 23:59 | disposition home or self-care (01) ==
LOC: SCTC 12:51
PROVIDERS: PCP Internal Medicine; Referring Provider Internal Medicine; Visit Provider Internal Medicine Hematology & Oncology
DX: Z51.11 Encounter for antineoplastic chemotherapy (principal); C50.812 Malignant neoplasm of overlapping sites of left female breast; Z17.421 Hormone receptor negative with human epidermal growth factor receptor 2 negative status
CPT/HCPCS: 36591; 80053; 84439; 84443; 85025; 96413; A4216; J1642; J3490; J7040; J9271

== ENCOUNTER → 2025-07-18 | Outpatient (CLI) | payer BC, SELFPAY ==
--- NOTE | 2025-07-18 10:30 | ECHO_ITS ---
Patient Info Name: Casandra De Paz Age: 59 years : 1965 Gender: Female Ht: 165 cm Wt: 108 kg BSA: 2.28 m2 BP: 176 / 102 mmHg HR: 95 bpm Exam Date: 07/18/2025 10:45 AM Admit Date: 07/18/2025 Site: [facility] Room Number: ECHO Patient Status: O Exam Type: CA echo doppler complete Awnings Mechanic: Zahira Bowers Ordering Physician: Mikael Macias Referring Physician: Mikael Macias Study Info Indications Malignant neoplasm of unspecified site of left female breast - Primary Location: SDIM Left Ventricular Outflow Tract Name Value Normal LVOT 2D LVOT Diameter 1.9 cm LVOT Doppler LVOT Peak Velocity 81 cm/s LVOT Mean Gradient 1 mmHg LVOT VTI 15 cm LVOT VTI/AV VTI Ratio 0.7 LVOT Stroke Volume 43 ml Pulmonic Valve Name Value Normal PV Doppler PV Peak Velocity 105 cm/s Mitral Valve Name Value Normal MV Doppler MV Mean Gradient 2 mmHg MV Decel Gilliam 343 cm/s2 MV PHT 44 ms MV Area (PHT) 5.0 cm2 4.0-5.0 MV Area (Cont Eq VTI) 1.7 cm2 MV Diastolic Function MV E Peak Velocity 52 cm/s MV A Peak Velocity 95 cm/s MV E/A 0.5 MV Annular TDI MV Septal e' Velocity 3.8 cm/s MV E/e' (Septal) 13.6 MV Lateral e' Velocity 2.8 cm/s MV E/e' (Lateral) 18.3 MV e' Average 3.32 cm/s MV E/e' (Average) 16.0 Tricuspid Valve Name Value Normal TV Regurgitation Doppler TR Peak Velocity 274 cm/s Estimated PAP/RSVP RA Pressure 3 mmHg <=5 PA Systolic Pressure 33 mmHg <36 RV Systolic Pressure 33 mmHg <36 Aortic Valve Name Value Normal AV 2D/MM AV Cusp Sep (MM) 1.5 cm AV Doppler AV Peak Velocity 127 cm/s AV Mean Gradient 3 mmHg AV VTI 22 cm AV Area (Cont Eq VTI) 2.0 cm2 >=3.0 AV Area (Cont Eq Edward) 1.8 cm2 AV DI (Edward) 0.64 AV Regurgitation 2D LVOT Area 2.8 cm2 Ventricles Name Value Normal LV Dimensions 2D/MM IVS Diastolic Thickness (2D) 0.9 cm 0.6-0.9 LVID Diastole (2D) 4.8 cm 3.8-5.2 LVIW Diastolic Thickness (2D) 1.1 cm 0.6-0.9 LVID Systole (2D) 3.5 cm 2.2-3.5 LVOT Diameter 1.9 cm LV Mass (2D Cubed) 170.19 g 67.00-162.00 LV Mass Index (2D Cubed) 75 g/m2 43-95 Relative Wall Thickness (2D) 0.46 <=0.42 IVS/LVIW Diastolic Thickness (2D) 0.82 0.00-1.50 LV Fractional Shortening/Ejection Fraction 2D/MM LV Fractional Shortening (2D) 27 % 27-45 LV EF (2D Teichholz) 53 % Atria Name Value Normal LA Dimensions LA Volume (4C A-L) 45 ml LA Volume (BP A-L) 56 ml Left Ventricle Left ventricular chamber dimension is normal. Left ventricular systolic function is normal with visually estimated ejection fraction of 55-60%. There is concentric remodeling noted in the left ventricle. Left ventricular segmental wall motion is normal. There is grade I diastolic dysfunction in the left ventricle. Right Ventricle Right ventricular chamber dimension is normal. Right ventricular systolic function is normal. Left Atrium Left atrial chamber dimension is normal. Right Atrium Right atrial chamber dimension is normal. Aortic Valve The aortic valve is trileaflet. There is no aortic valve sclerosis. There is no aortic valve stenosis with a peak velocity of 127 cm/s, mean gradient of 3 mmHg, and aortic valve area of 2.0 cm2. There is no aortic valve regurgitation. Pulmonic Valve The pulmonic valve is normal. There is no pulmonic valve stenosis. There is trace pulmonic regurgitation. Mitral Valve The mitral valve has normal leaflets. There is no mitral valve stenosis. There is trace mitral valve regurgitation. Tricuspid Valve The tricuspid valve leaflets are normal. There is no tricuspid valve stenosis. There is mild tricuspid valve regurgitation. No pulmonary hypertension, estimated pulmonary arterial systolic pressure is 33 mmHg and systemic blood pressure of 176 mmHg in systole. Pericardium/Pleural The pericardium appears normal. There is no pericardial effusion. No pleural effusion visualized. Inferior Vena Cava Normal inferior vena cava with >50% collapse upon inspiration consistent with normal right atrial pressure, 3 mmHg. Aorta The aortic measurements are indexed to age and body surface area. The aortic root at the sinus of Valsalva is not well visualized. The prox ascending aorta is not well visualized. Summary 1. Left ventricle size is normal and systolic function is normal. Estimated ejection fraction is 60%. 2. Right ventricle chamber size is normal and systolic function is normal. Estimated RVSP is 33 mmHg. 3. There is no aortic valve regurgitation. 4. There is trace mitral valve regurgitation and mild tricuspid valve regurgitation. 5. Normal IVC with estimated RA pressure 3 mmHg. Prior Cardiovascular Procedures Transthoracic Echocardiogram: Yes Date of Previous TTE: 04/2025 Report Signatures Finalized by Junito Sung on 07/18/2025 03:59 PM
== END | disposition home or self-care (01) ==
LOC: SDIM 09:54
PROVIDERS: PCP Internal Medicine; Referring Provider Internal Medicine Hematology & Oncology; Visit Provider Internal Medicine Hematology & Oncology
DX: I08.1 Rheumatic disorders of both mitral and tricuspid valves (principal); C50.912 Malignant neoplasm of unspecified site of left female breast
CPT/HCPCS: 93306